=== PATIENT | male | born 1950 | race Caucasian/White ===

== ENCOUNTER 2021-01-22 22:14 | Inpatient (IN) ==
[2021-01-22] MEDS ORDERED: methylPREDNISolone 125 MG/2 ML VIAL ONE (22:29)
[2021-01-22] MEDS ORDERED: ACETAMINOPHEN 1000 MG/100 ML IV IV ONE (22:29)
[2021-01-22] MEDS ORDERED: ONDANSETRON INJ 2 MG/ML 2 ML VIAL ONE (22:29)
[2021-01-22] MEDS ORDERED: CEFEPIME 2,000 MG/20 ML VIAL IV STA (22:34)
[2021-01-22] MEDS ORDERED: ACETAMINOPHEN 1,000 MG/100 ML VIAL IV STA (22:34)
[2021-01-22] MEDS ORDERED: ALBUT/IPRATROP 3MG/0.5MG NEB 3 ML VIAL NEB STA (22:34)
[2021-01-22] MEDS ORDERED: methylPREDNISolone 125 MG/2 ML VIAL IV STA (22:37)
[2021-01-22 23:25] LABS: Hematocrit (blood only) 44.1 % (42-52); Hemoglobin 14.9 g/dL (14.0-18.0); Mean Corpuscular Hemoglobin 31.8 pg (25-34); Mean Corpuscular Hgb Conc 33.8 g/dL (32-36); Mean Corpuscular Volume 94.2 fL (80-100); Mean Platelet Volume 10.6 fL (7.4-10.4); Platelet Count 203 K/uL (130-400); RDW Coefficient of Variation 14.5 % (11.5-14.5); RDW Standard Deviation 49.7 fL (36.4-46.3); Red Blood Count 4.68 M/uL (4.7-6.1); White Blood Count 6.37 K/uL (4.8-10.8)
--- NOTE | 2021-01-22 23:30 | Emergency Department Note ---
History of Present Illness General Chief Complaint: Shortness of Breath/Dyspnea Time Seen by Provider: 01/22/21 22:30 Source: patient Mode of arrival: ambulatory Limitations: no limitations History of Present Illness Provider Complaint: shortness of breath and cough Onset (ago): week(s) (1.5) Severity: mild (Patient states that his symptoms are mild though the patient is on 15 L and hypoxic) Consistency/Duration: + constant and + progressively worsening Maximum Pain Intensity: 0 Relieved By: + nothing Exacerbated By: + nothing Context: + recent illness Associated symptoms: no sputum production, no lower extremity pain, no polyuria, no palpitations, no diaphoresis or no abdominal pain Treatment prior to arrival: oxygen Home Medications Medication Instructions Recorded Confirmed Type allopurinol 100 mg tablet 100 mg PO BID 12/20/18 01/23/21 History amlodipine 10 mg tablet 10 mg PO DAILY 12/20/18 01/23/21 History cyanocobalamin (vitamin B-12) 2,000 mcg PO DAILY 12/20/18 01/23/21 History 2,000 mcg tablet furosemide 20 mg tablet 20 mg PO DAILY 12/20/18 01/23/21 History hydralazine 25 mg tablet 25 mg PO BID 12/20/18 01/23/21 History lisinopril 40 mg tablet 40 mg PO DAILY 12/20/18 01/23/21 History metformin 1,000 mg tablet 1,000 mg PO BID 12/20/18 01/23/21 History metoprolol succinate 200 mg 200 mg PO DAILY 12/20/18 01/23/21 History tablet,extended release 24 hr ondansetron HCl 4 mg tablet 4 mg PO TID PRN 01/23/21 01/23/21 History Allergies Allergy/AdvReac Type Severity Reaction Status Date / Time No Known Allergies Allergy Unverified 01/23/21 00:29 Past Med/Surg History Medical History Chest pain Chest pain Diabetes Hypertension Renal colic Right flank pain Tick bite Surgical History No pertinent past surgical history Family History Other Coronary heart disease Social History Smoking Status: Never smoker Feels Safe at Home: Yes Review of Systems See HPI for pertinent positives & negatives. and A total of 10 systems reviewed and were otherwise negative Physical Exam Vital Signs: Vital Signs - 24 hr 01/22/21 22:28 01/22/21 22:30 01/22/21 22:37 Temperature 37.6 C H Temperature Source Oral Pulse Rate 110 H 113 H Pulse Rate [Apical ] Respiratory Rate 32 H 38 H Respiratory Effort / Characteristics Spontaneous Short of Breath Non-Labored Respiratory Depth Normal Normal Respiratory Patter n Regular Regular Blood Pressure 144/87 H Blood Pressure [Ri ght Arm] Blood Pressure Daysi n 106 Blood Pressure Daysi n [Right Arm] Blood Pressure Pos ition Sitting Pulse Oximetry 85 L 93 85 L Oxygen Delivery Me thod Non-rebreather Non-rebreather Oxygen Flow Rate 15 15 Fraction of Inspir ed Oxygen 70 Sepsis Recent Feve r Within 48 Hours No Sepsis New/Unexpla ined Change in Men georges Status N/A Sepsis Action Take n by Nursing Physician Notified 01/22/21 22:48 01/22/21 23:08 01/22/21 23:55 Temperature Temperature Source Pulse Rate 113 H Pulse Rate [Apical ] 110 H 105 H Respiratory Rate 35 H 34 H Respiratory Effort / Characteristics Spontaneous Short of Breath Non-Labored Sponta neous Respiratory Depth Normal Respiratory Patter n Blood Pressure Blood Pressure [Ri ght Arm] 118/65 Blood Pressure Daysi n Blood Pressure Daysi n [Right Arm] 82 Blood Pressure Pos ition Pulse Oximetry 92 91 92 Oxygen Delivery Me thod BiPAP BiPAP Oxygen Flow Rate 15 Fraction of Inspir ed Oxygen 70 80 Sepsis Recent Feve r Within 48 Hours Sepsis New/Unexpla ined Change in Men georges Status Sepsis Action Take n by Nursing 01/23/21 00:22 Temperature 36.4 C L Temperature Source Oral Pulse Rate Pulse Rate [Apical ] 86 Respiratory Rate 26 H Respiratory Effort / Characteristics Non-Labored Respiratory Depth Normal Respiratory Patter n Blood Pressure Blood Pressure [Ri ght Arm] 118/65 Blood Pressure Daysi n Blood Pressure Daysi n [Right Arm] 82 Blood Pressure Pos ition Pulse Oximetry 92 Oxygen Delivery Me thod BiPAP Oxygen Flow Rate Fraction of Inspir ed Oxygen Sepsis Recent Feve r Within 48 Hours Sepsis New/Unexpla ined Change in Men georges Status Sepsis Action Take n by Nursing Physical Exam: GENERAL: Moderate distress, tachypnea noted, nonrebreather in place. EYE EXAM: Normal conjunctiva. PERRL, no anisocoria and EOM's grossly intact w/o pain. NECK: Supple, no nuchal rigidity, no adenopathy, non-tender. No signs of meningismus. LUNGS: Slight decreased breath sounds throughout with shallow breaths noted, tachypnea noted. HEART: NSR, no MRG. ABDOMEN: Abdomen soft, non-tender, normo-active bowel sounds, no masses, no rebound or guarding. BACK: No CVA TTP. SKIN: No rashes and no bruising. UPPER EXTREMITIES: Upper extremities are grossly normal. LOWER EXTREMITIES: Grossly normal, no edema. No pain to palpation. NEURO EXAM: A&O x3, cranial nerves II-XII grossly intact, normal speech, moves all 4 extremities on command w/o issue. Course Course Cardiac monitoring: An order was placed for continuous cardiac monitoring. The monitor shows a rate of 86 with sinus rhythm. Administered Medications Discontinued Medications Acetaminophen (Acetaminophen 1000 Mg/100 Ml Iv) Confirm Administered Dose 1,000 mg IV .STK-MED ONE Stop: 01/22/21 22:30 Last Admin: 01/22/21 22:43 Dose: Not Given Documented by: [id number] Albuterol (Albut/Ipratrop 3mg/0.5mg Neb 3 Ml Vial) 6 ml NEB NOW STA Stop: 01/22/21 22:35 Last Admin: 01/22/21 22:45 Dose: 6 ml Documented by: [id number] Cefepime HCl (Maxipime) 2,000 mg in 20 mls @ 5 mls/min IV NOW STA; Protocol Stop: 01/22/21 22:37 Last Admin: 01/23/21 00:14 Dose: 5 mls/min Documented by: [id number] Acetaminophen (Ofirmev) 1,000 mg in 100 mls @ 400 mls/hr IV NOW STA Stop: 01/22/21 22:48 Last Infusion: 01/23/21 00:22 Dose: 0 mls/hr Documented by: [id number] Admin: 01/22/21 22:43 Dose: 400 mls/hr Documented by: [id number] Methylprednisolone (Methylprednisolone 125 Mg/2 Ml Vial) Confirm Administered Dose 125 mg .ROUTE .STK-MED ONE Stop: 01/22/21 22:30 Last Admin: 01/22/21 22:43 Dose: Not Given Documented by: [id number] Methylprednisolone (Methylprednisolone 125 Mg/2 Ml Vial) 60 mg IV NOW STA Stop: 01/22/21 22:38 Last Admin: 01/22/21 22:43 Dose: 60 mg Documented by: [id number] Ondansetron HCl (Ondansetron Inj 2 Mg/Ml 2 Ml Vial) Confirm Administered Dose 4 mg .ROUTE .STK-MED ONE Stop: 01/22/21 22:30 Last Admin: 01/22/21 22:43 Dose: 4 mg Documented by: [id number] Medical Decision Making Differential Diagnosis Reactive airway disease, pneumonia, pneumothorax, COPD, CHF, infections, cardiac ischemia, pulmonary embolism, musculoskeletal, gastrointestinal, as well as other pathologies. Medical Records Attestation: I reviewed the patient's medical records. Home Medications Current Medication List: was personally reviewed by me Laboratory Data Attestation: I reviewed the patient's lab results. Result diagrams: 01/22/21 22:29 01/22/21 22:29 Lab Results 01/22/21 01/22/21 01/22/21 Range/Units 22:29 22:29 22:29 WBC 6.37 (4.8-10.8) K/uL RBC 4.68 L (4.7-6.1) M/uL Hgb 14.9 (14.0-18.0) g/dL Hct 44.1 (42-52) % MCV 94.2 (80-100) fL MCH 31.8 (25-34) pg MCHC 33.8 (32-36) g/dL RDW Std Deviation 49.7 H (36.4-46.3) fL RDW Coeff of Trell 14.5 (11.5-14.5) % Plt Count 203 (130-400) K/uL MPV 10.6 H (7.4-10.4) fL Immature Gran % (Auto) 0.5 % Neut % (Auto) 79.9 % Lymph % (Auto) 13.0 % [place] % (Auto) 6.1 % Eos % (Auto) 0.0 % Baso % (Auto) 0.5 % Neut # (Auto) 5.09 (1.4-6.5) K/uL Lymph # (Auto) 0.83 L (1.2-3.4) K/uL [place] # (Auto) 0.39 (0.11-0.59) K/uL Eos # (Auto) 0.00 (0-0.5) K/uL Baso # (Auto) 0.03 (0-0.2) K/uL Immature Gran # (Auto) 0.03 H (0.00-0.02) K/uL PT 10.8 (9.0-12.0) Seconds INR 1.1 (0.9-1.1) APTT 28.4 (21.0-31.0) Seconds PTT Ratio 1.1 VBG pH (7.36-7.41) VBG pCO2 (38-50) mmHg VBG pO2 mmHg VBG HCO3 mmol/L VBG O2 Saturation % VBG Base Excess mEq/L Barometric Pressure mm/Hg Sodium 139 (136-145) mmol/L Potassium 4.2 (3.5-5.1) mmol/L Chloride 106 (98-107) mmol/L Carbon Dioxide 24 (21-32) mmol/L Anion Gap 9.0 (3-11) BUN 34 H (7-18) mg/dl Creatinine 1.68 H (0.6-1.4) mg/dl Est Cr Clr Drug Dosing 53.5 ml/min Est GFR ( Amer) 47.0 ml/min Est GFR (Non-Af Amer) 40.5 ml/min BUN/Creatinine Ratio 20.2 H (10-20) Glucose 129 H (70-99) mg/dl Lactate (0.4-2.0) mmol/L Calcium 8.7 (8.5-10.1) mg/dl Magnesium 1.7 L (1.8-2.4) mg/dl Total Bilirubin 0.5 (0.2-1) mg/dl AST 43 H (15-37) U/L ALT 30 (12-78) U/L Alkaline Phosphatase 46 (45-117) U/L Troponin I < 0.015 (0-0.045) ng/ml Total Protein 7.3 (6.4-8.2) gm/dl Albumin 2.6 L (3.4-5.0) gm/dl Globulin 4.7 H (2.5-4.0) gm/dl Albumin/Globulin Ratio 0.6 L (0.9-2) Procalcitonin (0-0.5) ng/ml COVID-19 Eval Order SARS-CoV-2 (PCR) (Negative) 01/22/21 01/22/21 01/22/21 Range/Units 22:29 22:49 22:49 WBC (4.8-10.8) K/uL RBC (4.7-6.1) M/uL Hgb (14.0-18.0) g/dL Hct (42-52) % MCV (80-100) fL MCH (25-34) pg MCHC (32-36) g/dL RDW Std Deviation (36.4-46.3) fL RDW Coeff of Trell (11.5-14.5) % Plt Count (130-400) K/uL MPV (7.4-10.4) fL Immature Gran % (Auto) % Neut % (Auto) % Lymph % (Auto) % [place] % (Auto) % Eos % (Auto) % Baso % (Auto) % Neut # (Auto) (1.4-6.5) K/uL Lymph # (Auto) (1.2-3.4) K/uL [place] # (Auto) (0.11-0.59) K/uL Eos # (Auto) (0-0.5) K/uL Baso # (Auto) (0-0.2) K/uL Immature Gran # (Auto) (0.00-0.02) K/uL PT (9.0-12.0) Seconds INR (0.9-1.1) APTT (21.0-31.0) Seconds PTT Ratio VBG pH (7.36-7.41) VBG pCO2 (38-50) mmHg VBG pO2 mmHg VBG HCO3 mmol/L VBG O2 Saturation % VBG Base Excess mEq/L Barometric Pressure mm/Hg Sodium (136-145) mmol/L Potassium (3.5-5.1) mmol/L Chloride (98-107) mmol/L Carbon Dioxide (21-32) mmol/L Anion Gap (3-11) BUN (7-18) mg/dl Creatinine (0.6-1.4) mg/dl Est Cr Clr Drug Dosing ml/min Est GFR ( Amer) ml/min Est GFR (Non-Af Amer) ml/min BUN/Creatinine Ratio (10-20) Glucose (70-99) mg/dl Lactate (0.4-2.0) mmol/L Calcium (8.5-10.1) mg/dl Magnesium (1.8-2.4) mg/dl Total Bilirubin (0.2-1) mg/dl AST (15-37) U/L ALT (12-78) U/L Alkaline Phosphatase (45-117) U/L Troponin I (0-0.045) ng/ml Total Protein (6.4-8.2) gm/dl Albumin (3.4-5.0) gm/dl Globulin (2.5-4.0) gm/dl Albumin/Globulin Ratio (0.9-2) Procalcitonin 0.35 (0-0.5) ng/ml COVID-19 Eval Order Covid19 at [facility] SARS-CoV-2 (PCR) POSITIVE A* (Negative) 01/22/21 01/22/21 Range/Units 23:29 23:29 WBC (4.8-10.8) K/uL RBC (4.7-6.1) M/uL Hgb (14.0-18.0) g/dL Hct (42-52) % MCV (80-100) fL MCH (25-34) pg MCHC (32-36) g/dL RDW Std Deviation (36.4-46.3) fL RDW Coeff of Trell (11.5-14.5) % Plt Count (130-400) K/uL MPV (7.4-10.4) fL Immature Gran % (Auto) % Neut % (Auto) % Lymph % (Auto) % [place] % (Auto) % Eos % (Auto) % Baso % (Auto) % Neut # (Auto) (1.4-6.5) K/uL Lymph # (Auto) (1.2-3.4) K/uL [place] # (Auto) (0.11-0.59) K/uL Eos # (Auto) (0-0.5) K/uL Baso # (Auto) (0-0.2) K/uL Immature Gran # (Auto) (0.00-0.02) K/uL PT (9.0-12.0) Seconds INR (0.9-1.1) APTT (21.0-31.0) Seconds PTT Ratio VBG pH 7.37 (7.36-7.41) VBG pCO2 45 (38-50) mmHg VBG pO2 52 mmHg VBG HCO3 26 mmol/L VBG O2 Saturation 84.1 % VBG Base Excess -0.2 mEq/L Barometric Pressure 733.4 mm/Hg Sodium (136-145) mmol/L Potassium (3.5-5.1) mmol/L Chloride (98-107) mmol/L Carbon Dioxide (21-32) mmol/L Anion Gap (3-11) BUN (7-18) mg/dl Creatinine (0.6-1.4) mg/dl Est Cr Clr Drug Dosing ml/min Est GFR ( Amer) ml/min Est GFR (Non-Af Amer) ml/min BUN/Creatinine Ratio (10-20) Glucose (70-99) mg/dl Lactate 2.1 H* (0.4-2.0) mmol/L Calcium (8.5-10.1) mg/dl Magnesium (1.8-2.4) mg/dl Total Bilirubin (0.2-1) mg/dl AST (15-37) U/L ALT (12-78) U/L Alkaline Phosphatase (45-117) U/L Troponin I (0-0.045) ng/ml Total Protein (6.4-8.2) gm/dl Albumin (3.4-5.0) gm/dl Globulin (2.5-4.0) gm/dl Albumin/Globulin Ratio (0.9-2) Procalcitonin (0-0.5) ng/ml COVID-19 Eval Order SARS-CoV-2 (PCR) (Negative) Imaging Data Attestation: I personally reviewed and interpreted this imaging study as follows: My Impression: Chest x-ray Multifocal pneumonia. MDM Narrative Patient does present due to concern for shortness of breath. The patient had tested positive for Covid 1/2 weeks prior. EMS reported room air sat of 64% the patient was placed on nonrebreather at 15 L and the patient was satting in the mid 80s upon arrival. The patient was seen in [facility]. The patient did not complain of shortness of breath. Patient denies feeling feverish but the pa aleta did have a temperature. The patient denies any chest pains or shortness of breath. Patient did have some shallow breaths and patient was immediately placed on BiPAP. The patient was ordered medications to help with symptoms. Patient has normal white count H&H and platelet count. The patient's kidney function is unremarkable. VBG does not show any concern for retention. The patient did have some lower saturations even on the BiPAP and I did increase the patient's settings to 15/9 at 85% which the patient helped well in the low 90s. The patient's chest x-ray does show concern for multifocal pneumonia. The patient does have mild hypomagnesemia. Troponin not detectable. Patient has a normal white count and hemoglobin. Kidney function does show creatinine 1.6. Patient VBG does not show any acidemia or hypercarbia. Patient initial lactate was 2.1. I did speak with the on-call hospitalist Dr. Lynch and the patient was admitted to the medicine service. I also did briefly touch base with the intensive care unit Javier Reilly PA-C given the patient's high BiPAP settings. Did receive this reassessed the patient multiple times and the patient was comfortable on the BiPAP. Impression & Plan Acute hypoxemic respiratory failure due to COVID-19, COVID-19, Multifocal pneumonia Critical Care Time Critical Care Time: Yes Total Critical Care Time: 125 Critical Care: I have personally spent 125 minutes of critical care time in direct management of this patient. This includes bedside care, interpretation of diagnostic studies, and testing, discussion with consultants, patient, and family members, and other require inpatient management activities. This 125 minutes is in excess of all separately billable procedures. Discharge Plan Visit Data Chief Complaint: Shortness of Breath/Dyspnea ED Provider: Omkar Barba Discharge Problem: Acute hypoxemic respiratory failure due to COVID-19, COVID-19, Multifocal pneumonia Patient Disposition: Admitted As Inpatient Forms Stand Alone Forms: My [facility] Prescriptions Prescriptions: No Action allopurinol 100 mg Tablet 100 mg PO BID RF: 0 hydralazine 25 mg Tablet 25 mg PO BID RF: 0 metformin 1,000 mg Tablet 1,000 mg PO BID RF: 0 cyanocobalamin (vitamin B-12) 2,000 mcg Tablet 2,000 mcg PO DAILY RF: 0 metoprolol succinate 200 mg Tablet Extended Release 24 Hr 200 mg PO DAILY RF: 0 amlodipine 10 mg Tablet 10 mg PO DAILY RF: 0 lisinopril 40 mg Tablet 40 mg PO DAILY RF: 0 furosemide 20 mg Tablet 20 mg PO DAILY RF: 0 ondansetron HCl 4 mg tablet 4 mg PO TID PRN (Reason: Nausea And Vomiting) RF: 0 Referrals Referrals: PCP,NO [Primary Care Provider] -
[2021-01-22 23:32] LABS: Alanine Aminotransferase 30 U/L (12-78); Albumin Level 2.6 gm/dl (3.4-5.0); Aspartate Aminotransferase 43 U/L (15-37); BUN Creatinine Ratio 20.2 (10-20); Blood Urea Nitrogen 34 mg/dl (7-18); Calcium 8.7 mg/dl (8.5-10.1); Carbon Dioxide 24 mmol/L (21-32); Chloride 106 mmol/L (98-107); Creatinine Clr Calc Pharmacy 53.5 ml/min; Est GFR (Non-African American) 40.5 ml/min; Glucose 129 mg/dl (70-99); Magnesium 1.7 mg/dl (1.8-2.4); Potassium 4.2 mmol/L (3.5-5.1); Sodium 139 mmol/L (136-145)
[2021-01-22 23:34] LABS: INR 1.1 (0.9-1.1); Partial Thromboplastin Ratio 1.1; Partial Thromboplastin Time 28.4 Seconds (21.0-31.0); Prothrombin Time 10.8 Seconds (9.0-12.0)
[2021-01-22 23:37] LABS: Albumin Globulin Ratio 0.6 (0.9-2); Alkaline Phosphatase 46 U/L (45-117); Bilirubin,Total 0.5 mg/dl (0.2-1); Globulin 4.7 gm/dl (2.5-4.0); Total Protein 7.3 gm/dl (6.4-8.2); Troponin I < 0.015 ng/ml (0-0.045)
[2021-01-22 23:44] LABS: Base Excess VBG -0.2 mEq/L; Oxygen Saturation VBG 84.1 %; pH VBG 7.37 (7.36-7.41)
[2021-01-23 00:29] LABS: Basophils # (auto) 0.03 K/uL (0-0.2); Basophils % (auto) 0.5 %; Immature Granulocytes # (auto) 0.03 K/uL (0.00-0.02); Immature Granulocytes % (auto) 0.5 %; Lymphocytes # (auto) 0.83 K/uL (1.2-3.4); Monocytes # (auto) 0.39 K/uL (0.11-0.59); Monocytes % (auto) 6.1 %; Neutrophils # (auto) 5.09 K/uL (1.4-6.5); Neutrophils % (auto) 79.9 %
[2021-01-23] MEDS ORDERED: REMDESIVIR 200 MG in SODIUM CHLORIDE 0.9% 210 ML IV STA (03:45)
[2021-01-23] MEDS ORDERED: ONDANSETRON 4 MG OD TAB PO PRN (05:05)
[2021-01-23] MEDS ORDERED: ICU PROTOCOL FOR HYPERGLYCEMIA PRN (05:05)
--- NOTE | 2021-01-23 05:39 | History and Physical Report ---
DATE OF ADMISSION: 01/23/2021. CHIEF COMPLAINT: Shortness of breath. HISTORY OF PRESENT ILLNESS: This is a 70-year-old male with a past medical history significant for type 2 diabetes, diabetic polyneuropathy, sleep apnea, abdominal aortic ectasia, hypertension, morbid obesity, chronic kidney disease stage III, who presents with shortness of breath. The patient was diagnosed with COVID on 01/15/2021. The patient seems to be having symptoms from 01/11/2021, having shortness of breath. Initially he had fever, having some cough, poor appetite, does not smell good, does not taste good. Because of ongoing shortness of breath, EMS was called and for EMS he was saturating only 60% and he was placed on nonrebreather and brought in here. On rebreather, he was 80's%. He was placed on BiPAP. With BiPAP at high settings, he was saturating more than 90. Currently, resting comfortably, but after talking to him, his saturations dropped into 60s again and we had to bump his FiO2 into 100%. Denies any chest pain, denies any nausea, no abdominal pain, no headache, no neck pain, no blurred visions, no earache, no runny nose, no sore throat, no rash. Says he has normal bowel and bladder movements. ALLERGIES: No known drug allergies. PAST MEDICAL HISTORY: As mentioned above. PAST SURGICAL HISTORY: Carpal tunnel surgery, colonoscopy, repair of rectal injury. MEDICATIONS: The patient is on allopurinol 100 mg p.o. b.i.d., amlodipine 10 mg p.o. daily, vitamin B12 2000 mcg p.o. daily, furosemide 20 mg p.o. daily, hydralazine 25 mg p.o. b.i.d., lisinopril 40 mg p.o. daily, metformin 1000 mg p.o. b.i.d., metoprolol succinate 200 mg p.o. daily, Zofran 4 mg p.o. t.i.d. p.r.n. FAMILY HISTORY: Significant for father of [place] at the age of 49; mother has hypertension; son has gout; sister of complication of diabetes; son has hypertension. SOCIAL HISTORY: , former smoker, quit in 1967. Smoked for 4 years. Former user of smokeless tobacco, quit in 2017. Snuffs tobacco. Drinks 1 standard drink of alcohol per week. No drug use. REVIEW OF SYSTEMS: As per HPI. Rest of the review of systems negative. PHYSICAL EXAMINATION: GENERAL: The patient is obese, not in acute distress. VITAL SIGNS: Temperature 36.4, pulse 72, respiratory rate 24, blood pressure 118/65, oxygen 94% on BiPAP. HEENT: Pupils equal, round and reactive to light. NECK: No neck masses seen. CARDIOVASCULAR: S1 and S2 heard, regular rate and rhythm. No murmur, no gallop. RESPIRATORY SYSTEM: Normal AP diameter. No accessory muscle use. Mild bibasilar crackles. ABDOMEN: Soft, bowel sounds present, nontender, no distention. CENTRAL NERVOUS SYSTEM: Cranial nerves II-XII grossly intact, nonfocal. EXTREMITIES: No edema, no erythema. LABORATORY DATA: WBC 6.3, hemoglobin 14.9, hematocrit 44.1, platelets 203. PT 10.8, INR 1.1, APTT 28.4. Venous blood gas, pH of 7.37, pCO2 of 45, pO2 of 52, bicarbonate 26. Sodium 139, potassium 4.2, chloride 106, bicarbonate 24, BUN 34, creatinine 1.68, serum glucose 129. Lactate 2.3, calcium 8.7, magnesium 1.7, total bilirubin 0.5, AST 43, ALT 30, alkaline phosphatase 46. Troponin I less than 0.015. SARS-CoV-2 PCR positive. IMAGING DATA: Chest x-ray, multifocal pneumonia. EKG: Sinus tachycardia at a rate of 111. Nonspecific ST-T abnormalities seen. ASSESSMENT AND PLAN: This is a 70-year-old male, who presents with shortness of breath and has COVID pneumonia. 1. COVID pneumonia and hypoxia requiring BiPAP: The patient seems to be having symptoms from 01/11/2021. He was tested positive on 01/15/2021. Though he has more than 10 days of symptoms, we will place him on IV Decadron 6 mg and remdesivir and follow the labs. We will follow the inflammatory markers, CRP, D-dimer, ferritin levels, and because of high requirement of oxygenation and desaturating easily, closely monitor in the ICU. 2. History of diabetes: Hold his metformin. We will place him on insulin sliding scale. Follow the blood sugars while he is on Decadron. 3. Acute kidney injury on chronic kidney disease stage III: Baseline creatinine 1.2, presently with creatinine of 1.68. Holding his Lasix and lisinopril and metformin. Will follow the labs. 4. Hypertension: Continue his amlodipine, hydralazine, metoprolol succinate. Holding his lisinopril and Lasix. We will monitor his blood pressure. If needed, we will place him on IV hydralazine p.r.n. 5. Gout: On allopurinol. 6. Obstructive sleep apnea: Uses BiPAP at bedtime. The patient is on 4 L with BiPAP during night time. 7. Morbid obesity: Needs counseling. 8. Deep venous thrombosis prophylaxis: We will place on heparin subcutaneous. DISPOSITION: Closely monitor in the ICU. Level 1 full code. Discharge to be determined. Job ID: [id number]
[2021-01-23] MEDS ORDERED: GLUCAGON FOR INJ 1 MG VIAL IM PRN (05:45)
[2021-01-23] MEDS ORDERED: DEXTROSE 50% 50 ML SYRINGE IV PRN (05:45)
[2021-01-23] MEDS ORDERED: GLUCOSE 10 TABS/TUBE PO PRN (05:45)
[2021-01-23] MEDS ORDERED: GLUCOSE 40% GEL 15 GM TUBE PO PRN (05:45)
[2021-01-23] MEDS ORDERED: CARBOHYDRATES FOR HYPOGLYCEMIA PO PRN (05:45)
--- NOTE | 2021-01-23 05:57 | Critical Care Consultation ---
Date of Consultation January 23, 2021 Assessment & Plan (1) Admitted to intensive care unit: Reason Critically Ill: 70-year-old male with acute hypoxic respiratory failure in the setting of multifocal pneumonia consistent with COVID-19 pneumonia requiring ongoing evaluation and possible need for intervention for emergent airway secondary to increasing oxygen requirement. NEURO - * CAM ICU: NEGATIVE CARDIAC/VASCULAR - * History of hypertension: * Continue home medications as tolerated. * EKG: Sinus tachycardia @ [address] depressions noted laterally. QTc 416 ms. * Monitor on telemetry. RESPIRATORY - * Acute hypoxic respiratory failure: * Secondary to multifocal pneumonia the setting of COVID-19 pneumonia. * Currently requiring noninvasive positive pressure ventilatory techniques. * Will titrate down BiPAP settings as tolerated. * High flow nasal cannula intermittently as tolerated. * Encourage incentive spirometry and flutter valve. * Remdesivir ordered. * Continue with Decadron. * Patient may benefit from Tocilizumab. * Will check BNP. There appears to be a degree of pulmonary edema on chest x-ray. Consider addition of Lasix dosing of such. GI/NUTRITION - * Heart healthy diet * Prophylaxis: Famotidine RENAL/LYTES - * JASEN on CKD 3: * Received IV fluid resuscitation in the emergency department. * Continue to trend. * Would be cautious with use of IV fluids in the COVID-19 patient with multifocal infiltrative changes. - * No concerns at this time. ENDO - * DMII * BSGs per unit protocol. ISS --> gtt per unit policy. HEME - * Stable H&H ID - * Covid 19 infection: * Started on remdisivir. * Continue w/ Decadron. * Check CRP, LFTs, etc in evaluation for Tocilizumab. LINES/IV ACCESS - * PIVs x1 DVT PROPHYLAXIS - * Heparin sq * SCDs I have personally spent 35 minutes of critical care time in the direct management of this patient. This is a life/limb threatening event. This includes time spent evaluating patient, direct bedside care, chart review, placing orders, interpretation of diagnostic studies, discussion with consultants, patient, and family members, as well as other required patient management activities. This time is exclusive of all separately billable procedures, and teaching time and separate from and in addition to any other critical care service time. Thank you for allowing us to participate in the care of this patient. Please refer to my attending physician's documentation for any further recommendations. (2) Acute hypoxemic respiratory failure due to COVID-19: (3) COVID-19: (4) Multifocal pneumonia: (5) Diabetes: (6) Hypertension: History of Present Illness Attending Physician: Liban Marshall MD History of Present Illness Patient is a 70-year-old male with a significant past medical history for h ypertension, diabetes, and obesity who presented to the emergency department today via EMS with shortness of breath and hypoxia. The patient reportedly has had symptoms of fever, cough, generalized malaise, and loss of sense of smell and taste for the past week or 2. He was tested on 01/15 for COVID-19 and found to be positive. The patient is not vaccinated. His is positive for COVID- 19 as well. This evening, the patient had increasing shortness of breath which prompted his to contact EMS. In route, the patient was on a 15 L nonrebreather as he was initially found with saturations in the 60s. His saturations improved to the 80s. He was placed on BiPAP in the emergency department with moderate improvement. Chest x-ray concerning for bilateral infiltrative changes. He received IV steroids and albuterol nebs. Upon evaluation in the ICU, the patient is awake, alert, and oriented. He reports that his shortness of breath has improved with the BiPAP in place. He denies any complaints of headaches, dizziness, lightheadedness, chest pain, palpitations, pleuritic pain, nausea, vomiting, or abdominal discomfort. Allergies Allergy/AdvReac Type Severity Reaction Status Date / Time No Known Allergies Allergy Unverified 01/23/21 00:29 Home Medications Medication Instructions Recorded Confirmed Type allopurinol 100 mg tablet 100 mg PO BID 12/20/18 01/23/21 History amlodipine 10 mg tablet 10 mg PO DAILY 12/20/18 01/23/21 History cyanocobalamin (vitamin B-12) 2,000 mcg PO DAILY 12/20/18 01/23/21 History 2,000 mcg tablet furosemide 20 mg tablet 20 mg PO DAILY 12/20/18 01/23/21 History hydralazine 25 mg tablet 25 mg PO BID 12/20/18 01/23/21 History lisinopril 40 mg tablet 40 mg PO DAILY 12/20/18 01/23/21 History metformin 1,000 mg tablet 1,000 mg PO BID 12/20/18 01/23/21 History metoprolol succinate 200 mg 200 mg PO DAILY 12/20/18 01/23/21 History tablet,extended release 24 hr ondansetron HCl 4 mg tablet 4 mg PO TID PRN 01/23/21 01/23/21 History Patient History Medical History Chest pain Chest pain Diabetes Hypertension Renal colic Right flank pain Tick bite Surgical History No pertinent past surgical history Family History Other Coronary heart disease Social History Smoking Status: Never smoker Preferred Language: Polish Beliefs That Will Affect Care: None Current Living Situation: Spouse Other Information That Helps Us Care for You: No Feels Safe at Home: Yes Safety Concerns: Feels Safe At This Time Assistive Devices: Denture - Upper and Hearing Aid - Bilateral Review of Systems Review of Systems: A complete 10 point review of systems was reviewed with the patient with pertinent positives and negatives as per history of present illness. All else were negative. Physical Exam Physical Exam: VITAL SIGNS - Vital signs and nursing notes were reviewed. GENERAL - 70-year-old male appearing his stated age who is in no acute distress. Communicates well with provider and answers questions appropriately. SKIN - Without rashes. HEAD - NC/AT. EYES - PERRL with EOMI bilaterally. Sclera anicteric. EARS - No deformities of external structures noted on gross examination bilaterally. NOSE - Midline and without cyanosis. No epistaxis or purulent drainage noted. MOUTH/OROPHARYNX - BiPAP mask in place. Without perioral cyanosis. Buccal mucosa pink and moist and without leukoplakia. NECK - Neck with FROM. Supple to palpation. No nuchal rigidity. LUNGS - Chest wall symmetric without accessory muscle use, intercostals retractions, or central cyanosis. Coarse breath sounds appreciated throughout. CARDIAC - RRR with S1/S2. No murmur, rubs, or gallops appreciated. ABDOMEN - Abdominal contour obese without pulsations or visible masses. BS normoactive all four quadrants. No tenderness, palpable masses, hepatosplenomega ly, or ascites noted. EXTREMITIES - No clubbing or peripheral cyanosis. No pretibial edema present. +3/5 radial and dorsalis pedis pulses palpated throughout. +5/5 strength noted in UE/LE bilaterally. NEUROLOGIC - Cranial nerves II through XII grossly intact. PSYCH - A&Ox3 and cooperates fully with examiner. Pt is very pleasant and interacts well with examiner. Results & Data Results & Data ([facility]) Vital Signs (Past 12 Hours) Vital Signs Temp Pulse Pulse Resp BP BP BP 01/23/21 05:05 119/64 01/23/21 05:00 36.1 C L 70 22 109/59 L 01/23/21 04:45 36.1 C L 74 108/59 L 01/23/21 04:35 70 27 H 01/23/21 04:22 71 18 89/52 L 01/23/21 04:11 70 23 79/55 L 01/23/21 03:30 01/23/21 02:38 72 24 118/65 01/23/21 02:16 79 27 H 01/23/21 00:22 36.4 C L 86 26 H 118/65 01/22/21 23:55 01/22/21 23:08 113 H 105 H 34 H 118/65 01/22/21 22:48 110 H 35 H 01/22/21 22:37 37.6 C H 113 H 38 H 144/87 H 01/22/21 22:30 110 H 32 H 01/22/21 22:28 01/22/21 22:19 107 H 51 H 118/65 Pulse Ox 01/23/21 05:05 01/23/21 05:00 96 01/23/21 04:45 94 01/23/21 04:35 92 01/23/21 04:22 95 01/23/21 04:11 95 01/23/21 03:30 94 01/23/21 02:38 91 01/23/21 02:16 95 01/23/21 00:22 92 01/22/21 23:55 92 01/22/21 23:08 91 01/22/21 22:48 92 01/22/21 22:37 85 L 01/22/21 22:30 93 01/22/21 22:28 85 L 01/22/21 22:19 87 L Coding Level of Care Code Critical Care 1st 30-74 mins Diagnoses Admitted to intensive care unit Z78.9 Acute hypoxemic respiratory failure due to COVID-19 U07.1; J96.01 COVID-19 U07.1 Multifocal pneumonia J18.9 Diabetes E11.9 Hypertension I10 Time Spent (min) 35
[2021-01-23] MEDS ORDERED: HEPARIN SOD 5,000 UNIT/0.5 ML VIAL SQ SCH (06:00)
[2021-01-23] MEDS ORDERED: INSULIN ASPART 100 UNITS/ML 3 ML PEN SC SCH (06:00)
[2021-01-23 06:53] LABS: C Reactive Protein 13.2 mg/dl (0-0.29); Ferritin 768.3 ng/ml (8-388)
[2021-01-23 07:17] LABS: D Dimer 3910 ug/L FEU (0-500)
--- NOTE | 2021-01-23 07:53 | XRay Report ---
XR chest 1V portable HISTORY: SEPSIS COMPARISON: Chest 12/20/2018. FINDINGS: No pneumothorax. There are trace bilateral pleural effusions. The heart is mildly enlarged. There are low lung volumes. There are scattered patchy airspace opacities most pronounced within the periphery of the left lung. This likely represents a viral pneumonia. IMPRESSION: Scattered patchy airspace opacities likely representing a viral pneumonia. There are trace bilateral pleural effusions. ACT 112: Negative or not required by law. Electronically signed by: Cleveland Bailon M.D. 01/23/2021 7:52 AM
[2021-01-23] MEDS: hydrALAZINE HCL 25 MG TAB PO SCH ×2 (08:08→21:29)
[2021-01-23] MEDS: allopurinoL 100 MG TAB PO SCH ×2 (08:08→21:29)
[2021-01-23] MEDS: CYANOCOBALAMIN 500 MCG TABLET (VITAMIN B-12) PO SCH (08:08)
[2021-01-23] MEDS: dexAMETHasone 6 MG in SYRINGE 0 ML IV SCH (08:10)
[2021-01-23] MEDS ORDERED: METOPROLOL SUCC 50MG EXT REL TAB PO SCH (09:00)
[2021-01-23] MEDS ORDERED: SODIUM CHLORIDE 0.9% 10ML FLUSH IV SCH (09:00)
[2021-01-23] MEDS ORDERED: amLODIPine BESYLATE 5 MG TAB PO SCH (09:00)
[2021-01-23] MEDS ORDERED: PHARMACY GLYCEMIC MGMT CONSULT PRN (09:45)
[2021-01-23] MEDS ORDERED: INSULIN HUMAN NPH SC STA ×2 (09:49→11:14)
[2021-01-23] MEDS ORDERED: TOCILIZUMAB 800 MG in 0.9 % SODIUM CHLORIDE 60 ML IV ONE (10:00)
[2021-01-23 11:11] LABS: Estimated Average Glucose 137 mg/dl; Hemoglobin A1C 6.4 % (4.5-5.6)
[2021-01-23] MEDS: INSULIN ASPART 100 UNITS/ML 3 ML PEN SC SCH ×3 (11:31→21:11)
--- NOTE | 2021-01-23 11:39 | Pharmacy Report ---
Pharmacy Glycemic Short Note 2 - Date of Service January 23, 2021 - Glycemic Short BSG Results (Last 24 hours): 01/22/21 01/23/21 01/23/21 22:29 06:12 11:11 Glucose 129 H POC Glucose 162 H 165 H OUTPATIENT ANTIDIABETIC REGIMEN: * metformin 1gm PO BID * A1c = 6.4% 01/23/21 ASSESSMENT: * Type 2 diabetic, well controlled w/ metformin monotherapy, admitted 01/23 for COVID pneumonia * BSGs thus far acceptable, 160s range * IV dexamethasone 6 mg daily ordered * Not currently intubated, not requiring pressors * Remains NPO due to oxygen delivery needs * Will admin NPH ~0.2 units/kg adj BW x 1 with AM dexamethasone for basal needs. * Will utilize "severe" stress Novolog correction / carb coverage PLAN FOR INPATIENT GLYCEMIC CONTROL: * Hold outpatient oral diabetes medications (metformin) * Basal insulin * NPH 20 units SQ x 1, reassess needs tomorrow AM given ongoing NPO status * Bolus insulin * NovoLog per scale Q4hrs while NPO * Goal Range: Low 110 mg/dL - High 140 mg/dL * Correction Factor: 18 mg/dL/unit * Nutritional / Prandial insulin per carb ratio of 1 unit per 6 grams CHO consumed PLAN FOR DISCHARGE: * may resume metformin on discharge given A1c at goal (< 6.5%) if no contraindications present
--- NOTE | 2021-01-23 12:01 | Communication Note ---
Date of Service: January 23, 2021 Patient seen and examined. Discussed with critical care NELLIE as well as with bedside critical care nurse. Discussed on multidisciplinary rounds. Patient is when weaned to high flow oxygen. Were working on identifying his BiPAP settings at home and will continue BiPAP when sleeping. He was reviewed and found to be a candidate for Tocilizumab which is being administered now after consultation with pharmacy. No indication for remdesivir as he is too far out of the window to justify viral replication as an ongoing issue. Continue dexamethasone 6 mg daily for 10 days. We will try and prone or place the patient in the decubitus position to see if this improves his shunt fraction. Trial of gentle diuresis may be warranted. We will need to follow his renal function and trend his lactate although I suspect it is related to hypoxemia. Procalcitonin negative so antibiotics will be withheld currently and will follow for secondary infection. Can advance diet to liquids. If the patient does well on high flow oxygen, he can likely leave the ICU although he has a high possibility of clinical decline. He would want intubation mechanical ventilation and tracheostomy if needed. Additional critical care time 55 minutes. Coding Level of Care Code Critical Care ea addt'l 30 min Time Spent (min) 55
[2021-01-23] MEDS ORDERED: FUROSEMIDE 20 MG in SYRINGE 0 ML IV ONE (12:15)
[2021-01-23 12:34] LABS: Appearance Urine Slightly Cloudy (Clear); Bilirubin Urine Negative (Negative); Blood Urine Negative (Negative); Color Urine Yellow; Glucose Urine UA Negative (Negative); Ketones Urine Trace (Negative); Leukocyte Esterase Urine Negative (Negative); Nitrite Urine Negative (Negative); Protein Urine 2+ (Negative); Specific Gravity Urine 1.025 (1.000-1.030); Urobilinogen Urine Negative (Negative)
[2021-01-23 12:58] LABS: Bacteria Urine 1+ (Negative); RBC Urine 0-4 /hpf (0-4)
--- NOTE | 2021-01-23 13:56 | Electrocardiogram Report ---
Test Reason : Blood Pressure : / mmHG Vent. Rate : 111 BPM Atrial Rate : 111 BPM P-R Int : 140 ms QRS Dur : 082 ms QT Int : 306 ms P-R-T Axes : 037 050 095 degrees QTc Int : 416 ms Poor data quality, interpretation may be adversely affected Sinus tachycardia Nonspecific ST and T wave abnormality Abnormal ECG When compared with ECG of 20-DEC-2018 23:10, Vent. rate has increased BY [address] now depressed in Lateral leads Nonspecific T wave abnormality now evident in Inferior leads Nonspecific T wave abnormality now evident in Lateral leads Confirmed by Ruddy Francis ([id number]) on 01/23/2021 1:55:58 PM Referred By: REFERRED SELF Confirmed By:Erik Francis
[2021-01-23] MEDS: HEPARIN SOD 5,000 UNIT/0.5 ML VIAL SQ SCH ×2 (14:57→21:29)
--- NOTE | 2021-01-23 16:30 | Hospitalist Progress Note ---
Date of Service January 23, 2021 Assessment & Plan (1) Acute hypoxemic respiratory failure due to COVID-19: Plan: Patient is a 70 yr male, who presents with shortness of breath and has COVID pneumonia. Acute on chronic respiratory failure with hypoxia COVID pneumonia COVID Screen:Positive on 01/15/21 CXR:Scattered patchy airspace opacities likely representing a viral pneumonia. There are trace bilateral pleural effusions. Procalcitonin: 0.35 CRP:13.2 Ferritin:768 D-Dimer:3910 Blood/Urine Cultures Pending Received Tocilizumab Continue Dexamethasone Remdesivir discontinued Isolation precautions--Airborne/Contact Appreciate Critical Care Input Encourage frequent Proning Lasix as needed Albuterol PRN Continue Supplemental Oxygen as needed DVT prophylaxis on Heparin SQ DM II HbA1C: 6.4 Hold Metformin Continue Insulin therapy Monitor BGs Acute kidney injury on CKD III Baseline cr 1.2 Cr:1.68 Monitor renal function lisinopril and metformin held Monitor renal function Hypertension: Was on amlodipine, hydralazine, metoprolol succinate, lisinopril Resume home meds as able Gout: On allopurinol. Obstructive sleep apnea: Uses BiPAP at bedtime. Uses Oxygen 4 L with BiPAP during night time. Morbid obesity: Needs counseling DVT Px: Heparin SQ Code Status Full Code Admission and Anticipated Discharge Date Admission Date: January 23, 2021 Subjective Patient is seen and examined at bedside States his dyspnea is better Minimal cough No diarrhea, nausea, vomiting, abd pain Denies chest pain, dizziness Offers no other complaints Currently on High Flow Oxygen Review of Systems Review of Systems: All systems reviewed & are unremarkable except as noted in Subjective Physical Exam Physical Exam: Physical Exam: Vitals signs as noted above General Appearance:Obese, no apparent distress Head: normocephalic, Atraumatic Eyes: normal inspection, EOMI Neck: supple, Trachea midline Respiratory/Chest: Decreased breath sounds, CTA Cardiovascular: S1, S2, No murmur Abdomen/GI:Soft, Non tender, Bowel sounds present Extremities/Musculoskeletal:normal inspection, no edema Neurologic/Psych:AAOX3, grossly no focal neurological deficits Skin: normal color, warm Results & Data Results & Data ([facility]) Vital Signs (Past 12 Hours) Vital Signs Temp Pulse Pulse Resp BP BP BP 01/23/21 15:47 81 01/23/21 15:32 36.7 C 89 21 119/66 01/23/21 15:07 84 20 01/23/21 15:02 88 25 H 139/78 01/23/21 14:32 82 19 111/67 01/23/21 14:01 84 25 H 131/69 01/23/21 13:31 86 23 126/67 01/23/21 13:02 85 17 122/60 01/23/21 12:32 77 15 100/74 01/23/21 12:01 36.5 C 88 20 135/82 01/23/21 11:59 89 20 01/23/21 11:32 81 21 126/60 01/23/21 11:02 71 19 116/54 L 01/23/21 10:32 72 22 94/54 L 01/23/21 10:02 67 24 98/54 L 01/23/21 09:32 73 25 H 96/63 L 01/23/21 09:01 76 25 H 101/53 L 01/23/21 08:32 74 23 107/55 L 01/23/21 08:02 36.6 C 75 23 110/67 01/23/21 08:00 67 01/23/21 07:32 68 23 90/61 L 01/23/21 07:01 73 22 103/58 L 01/23/21 06:00 68 22 114/62 01/23/21 05:05 119/64 01/23/21 05:00 36.1 C L 70 22 109/59 L 01/23/21 04:45 36.1 C L 74 108/59 L 01/23/21 04:35 70 27 H 01/23/21 04:22 71 18 89/52 L Pulse Ox 01/23/21 15:47 01/23/21 15:32 90 01/23/21 15:07 89 L 01/23/21 15:02 88 L 01/23/21 14:32 89 L 01/23/21 14:01 89 L 01/23/21 13:31 88 L 01/23/21 13:02 88 L 01/23/21 12:32 92 01/23/21 12:01 92 01/23/21 11:59 90 01/23/21 11:32 94 01/23/21 11:02 93 01/23/21 10:32 97 01/23/21 10:02 100 01/23/21 09:32 88 L 01/23/21 09:01 89 L 01/23/21 08:32 90 01/23/21 08:02 89 L 01/23/21 08:00 01/23/21 07:32 91 01/23/21 07:01 95 01/23/21 06:00 98 01/23/21 05:05 01/23/21 05:00 96 01/23/21 04:45 94 01/23/21 04:35 92 01/23/21 04:22 95 Laboratory Results Short CBC 01/22/21 Range/Units 22:29 WBC 6.37 (4.8-10.8) K/uL Hgb 14.9 (14.0-18.0) g/dL Hct 44.1 (42-52) % Plt Count 203 (130-400) K/uL BMP 01/22/21 22:29 Sodium 139 Potassium 4.2 Chloride 106 Carbon Dioxide 24 BUN 34 H Creatinine 1.68 H Glucose 129 H Calcium 8.7 Cardiac Enzymes 01/22/21 Range/Units 22:29 Troponin I < 0.015 (0-0.045) ng/ml Liver Function 01/22/21 Range/Units 22:29 Total Bilirubin 0.5 (0.2-1) mg/dl AST 43 H (15-37) U/L ALT 30 (12-78) U/L Alkaline Phosphatase 46 (45-117) U/L Albumin 2.6 L (3.4-5.0) gm/dl Urine 01/23/21 Range/Units 12:22 Urine Color Yellow Urine Appearance Slightly Cloudy (Clear) Urine pH 5.0 (4.5-7.5) Ur Specific [place] 1.025 (1.000-1.030) Urine Protein 2+ H (Negative) Urine Glucose (UA) Negative (Negative)
[2021-01-24] MEDS: INSULIN ASPART 100 UNITS/ML 3 ML PEN SC SCH ×7 (00:36→23:50)
[2021-01-24 05:21] LABS: Hematocrit (blood only) 45.3 % (42-52); Mean Corpuscular Hemoglobin 31.3 pg (25-34); Mean Corpuscular Hgb Conc 33.1 g/dL (32-36); Mean Corpuscular Volume 94.6 fL (80-100); Mean Platelet Volume 10.8 fL (7.4-10.4); Platelet Count 242 K/uL (130-400); RDW Coefficient of Variation 14.6 % (11.5-14.5); Red Blood Count 4.79 M/uL (4.7-6.1); White Blood Count 11.59 K/uL (4.8-10.8)
[2021-01-24 05:42] LABS: Albumin Level 2.7 gm/dl (3.4-5.0); C Reactive Protein 8.95 mg/dl (0-0.29); Calcium 9.1 mg/dl (8.5-10.1); Creatinine Clr Calc Pharmacy 58.3 ml/min; Est GFR (Non-African American) 45.8 ml/min; Magnesium 2.1 mg/dl (1.8-2.4); Potassium 4.1 mmol/L (3.5-5.1)
[2021-01-24 05:47] LABS: Bilirubin Direct 0.1 mg/dl (0-0.2); Bilirubin,Total 0.4 mg/dl (0.2-1); Phosphorus 4.2 mg/dl (2.5-4.9); Total Protein 7.2 gm/dl (6.4-8.2)
[2021-01-24 06:02] LABS: Basophils # (auto) 0.04 K/uL (0-0.2); Basophils % (auto) 0.3 %; Immature Granulocytes # (auto) 0.03 K/uL (0.00-0.02); Immature Granulocytes % (auto) 0.3 %; Lymphocytes # (auto) 1.15 K/uL (1.2-3.4); Lymphocytes % (auto) 9.9 %; Monocytes # (auto) 0.97 K/uL (0.11-0.59); Monocytes % (auto) 8.4 %; Neutrophils % (auto) 81.1 %
[2021-01-24] MEDS: HEPARIN SOD 5,000 UNIT/0.5 ML VIAL SQ SCH ×3 (06:14→20:05)
[2021-01-24] MEDS ORDERED: REMDESIVIR 100 MG in SODIUM CHLORIDE 0.9% 230 ML IV SCH (08:00)
[2021-01-24] MEDS: CYANOCOBALAMIN 500 MCG TABLET (VITAMIN B-12) PO SCH (08:14)
[2021-01-24] MEDS: hydrALAZINE HCL 25 MG TAB PO SCH ×2 (08:14→20:05)
[2021-01-24] MEDS: allopurinoL 100 MG TAB PO SCH ×2 (08:14→20:04)
--- NOTE | 2021-01-24 08:14 | Critical Care Progress Note ---
Date of Service January 24, 2021 Assessment & Plan (1) Admitted to intensive care unit: (2) Acute hypoxemic respiratory failure due to COVID-19: (3) COVID-19: (4) Multifocal pneumonia: (5) HANSEL on CPAP: (6) Obesity: (7) CKD (chronic kidney disease): Plan: Reason Critically Ill: 70-year-old male with acute hypoxic respiratory failure in the setting of multifocal pneumonia consistent with COVID-19 pneumonia requiring ongoing evaluation and possible need for intervention for emergent airway secondary to increasing oxygen requirement. 24-hour events: The patient received Tocilizumab. His oxygen was weaned down to 10 to 12 L. He was put on his home CPAP settings at night. He has done well clinically. Is been hemodynamically stable. Recommendations: NEURO -no current issues continue to follow clinically CAM ICU: NEGATIVE CARDIAC/VASCULAR -continue hydralazine and restart home metoprolol but will use shorter acting rather than sustained dose and start at half the dose. Hold on restarting Norvasc. Now in normal sinus rhythm with resolved tachycardia. RESPIRATORY -hypoxemic respiratory failure secondary to COVID-19 pneumonia: Continue dexamethasone. Patient has underlying sleep disordered breathing and should continue CPAP 7 cm of water with oxygen bleed at night. Titrate oxygen to maintain oxygen saturations at or above 88 to 90%. Continue pulmonary toilet. Hold additional Lasix for now. Need to mobilize out of bed to chair as tolerated. GI/NUTRITION -advance diet to heart healthy. Can discontinue H2 blockers he is taking p.o. currently. RENAL/LYTES -serum creatinine stable. Electrolytes and acid-base status appropriate. - No concerns at this time. ENDO -continue insulin dosing per pharmacy. DMII BSGs per unit protocol. ISS --> gtt per unit policy. HEME - Stable H&H ID -COVID-19 pneumonia: Outside the window for remdesivir. Continue Decadron. Received Tocilizumab. Continue to follow clinically. LINES/IV ACCESS - PIVs x1 DVT PROPHYLAXIS - Heparin sq SCDs Patient reviewed with bedside critical care nurse and on multidisciplinary rounds. Total of 40 minutes was spent in evaluation management of this patient managing care including discussion with hospitalist and coordinating care. patient appears stable to downgrade out of the intensive care unit. Discussed with the admitting hospitalist. Will sign off from a critical care standpoint once he leaves the ICU. Please contact us should the patient's clinical condition change or deteriorate. Admission and Anticipated Discharge Date Admission Date: January 23, 2021 Subjective Patient seen and examined. EMR reviewed. Discussed with the critical care NELLIE and bedside ICU nurse. Patient is doing well. He is on his home CPAP setting at 7 cm water with oxygen bleed on 50%. He is comfortable. He is not coughing. He denies any chest pain or palpitations. No nausea or vomiting. No abdominal pain. He is hungry and interested in pursuing a diet. He denies lower extremity edema. He overall feels improved. Review of Systems Review of Systems: All systems reviewed & are unremarkable except as noted in HPI & below Physical Exam Constitutional: WD/WN, vitals as above Neck: trachea midline, no thyromegaly Respiratory: no respiratory distress and no labored breathing Auscultation: + crackles and + wheezes Cardiovascular: RRR, no murmur, no edema Gastrointestinal (Abdomen): normal bowel sounds, soft, nontender, no hepatosplenomegaly Musculoskeletal: Extremities: extremities normal to inspection Skin: no rashes, warm and dry Neurologic: Nonfocal exam Lymphatic: no cervical lymphadenopathy Results & Data Results & Data ([facility]) Vital Signs (Past 12 Hours) Vital Signs Temp Pulse Pulse Resp BP Pulse Ox 01/24/21 07:48 74 19 94 01/24/21 06:32 75 22 125/66 93 01/24/21 06:02 37.0 C 77 20 116/65 94 01/24/21 05:32 75 22 120/68 94 01/24/21 05:02 74 21 122/64 94 01/24/21 04:32 79 25 H 126/66 91 01/24/21 04:01 37.0 C 86 24 130/71 92 01/24/21 03:32 78 24 99/54 L 91 01/24/21 03:02 71 20 106/52 L 96 01/24/21 03:00 79 24 97 01/24/21 02:31 78 22 114/66 96 01/24/21 02:02 37 C 77 24 103/57 L 94 01/24/21 00:31 79 24 134/60 95 01/24/21 00:02 36.7 C 82 26 H 110/55 L 96 01/23/21 23:59 87 01/23/21 23:32 81 25 H 113/55 L 95 01/23/21 23:30 79 23 94 01/23/21 23:02 87 27 H 119/65 87 L 01/23/21 22:32 87 26 H 115/64 88 L 01/23/21 22:02 36.6 C 88 25 H 122/74 88 L 01/23/21 21:32 85 25 H 133/66 89 L 01/23/21 21:02 83 26 H 123/72 88 L 01/23/21 20:32 82 23 140/69 87 L 01/23/21 20:29 84 20 89 L Critical Care Results & Data Vital Signs (Past 12 Hours) Vital Signs Temp Pulse Pulse Resp BP Pulse Ox 01/24/21 07:48 74 19 94 01/24/21 06:32 75 22 125/66 93 01/24/21 06:02 37.0 C 77 20 116/65 94 01/24/21 05:32 75 22 120/68 94 01/24/21 05:02 74 21 122/64 94 01/24/21 04:32 79 25 H 126/66 91 01/24/21 04:01 37.0 C 86 24 130/71 92 01/24/21 03:32 78 24 99/54 L 91 01/24/21 03:02 71 20 106/52 L 96 01/24/21 03:00 79 24 97 01/24/21 02:31 78 22 114/66 96 01/24/21 02:02 37 C 77 24 103/57 L 94 01/24/21 00:31 79 24 134/60 95 01/24/21 00:02 36.7 C 82 26 H 110/55 L 96 01/23/21 23:59 87 01/23/21 23:32 81 25 H 113/55 L 95 01/23/21 23:30 79 23 94 01/23/21 23:02 87 27 H 119/65 87 L 01/23/21 22:32 87 26 H 115/64 88 L 01/23/21 22:02 36.6 C 88 25 H 122/74 88 L 01/23/21 21:32 85 25 H 133/66 89 L 01/23/21 21:02 83 26 H 123/72 88 L 01/23/21 20:32 82 23 140/69 87 L 08/11/21 20:29 84 20 89 L Lab & Micro Results (Past 24 Hours) RBC 4.79 M/uL (4.7-6.1) 01/24/21 WBC 11.59 K/uL (4.8-10.8) H 01/24/21 Hgb 15.0 g/dL (14.0-18.0) 01/24/21 Hct 45.3 % (42-52) 01/24/21 MCV 94.6 fL (80-100) 01/24/21 MCH 31.3 pg (25-34) 01/24/21 MCHC 33.1 g/dL (32-36) 01/24/21 RDW Standard Deviation 51.0 fL (36.4-46.3) H 01/24/21 RDW Coefficient of Variation 14.6 % (11.5-14.5) H 01/24/21 Plt Count 242 K/uL (130-400) 01/24/21 MPV 10.8 fL (7.4-10.4) H 01/24/21 Neutrophils (%) (Auto) 81.1 % 01/24/21 Lymphocytes (%) (Auto) 9.9 % 01/24/21 Monocytes # (Auto) 0.97 K/uL (0.11-0.59) H 01/24/21 Eosinophils # (Auto) 0.00 K/uL (0-0.5) 01/24/21 Immature Granulocyte % (Auto) 0.3 % 01/24/21 Neutrophils # (Auto) 9.40 K/uL (1.4-6.5) H 01/24/21 Lymphocytes # (Auto) 1.15 K/uL (1.2-3.4) L 01/24/21 Monocytes # (Auto) 0.97 K/uL (0.11-0.59) H 01/24/21 Eosinophils # (Auto) 0.00 K/uL (0-0.5) 01/24/21 Basophils # (Auto) 0.04 K/uL (0-0.2) 01/24/21 Immature Granulocyte # (Auto) 0.03 K/uL (0.00-0.02) H 01/24/21 Na 139 mmol/L (136-145) 01/24/21 K 4.1 mmol/L (3.5-5.1) 01/24/21 Cl 107 mmol/L (98-107) 01/24/21 CO2 27 mmol/L (21-32) 01/24/21 Anion Gap 5.0 (3-11) 01/24/21 BUN 53 mg/dl (7-18) H 01/24/21 Creatinine 1.52 mg/dl (0.6-1.4) H 01/24/21 Estimated GFR ( Amer) 53.0 ml/min 01/24/21 Estimated GFR (Non-Af Amer) 45.8 ml/min 01/24/21 BUN/Creatinine Ratio 35.0 (10-20) H 01/24/21 Glu 139 mg/dl (70-99) H 01/24/21 Ca 9.1 mg/dl (8.5-10.1) 01/24/21 Phosphorus Level 4.2 mg/dl (2.5-4.9) 01/24/21 Total Bilirubin 0.4 mg/dl (0.2-1) 01/24/21 Direct Bilirubin 0.1 mg/dl (0-0.2) 01/24/21 AST 41 U/L (15-37) H 01/24/21 ALT 29 U/L (12-78) 01/24/21 Alkaline Phosphatase 48 U/L (45-117) 01/24/21 TP 7.2 gm/dl (6.4-8.2) 01/24/21 Albumin 2.7 gm/dl (3.4-5.0) L 01/24/21 2 Mg 2.1 mg/dl (1.8-2.4) 01/24/21 05:06 01/24/21 Calcium Level 9.1 mg/dl (8.5-10.1) 01/24/21 05:06 01/24/21 Microbiology 01/22/21 23:29 Aerobic Blood Culture - Preliminary Blood No growth in Aerobic bottle after 24 hours. Anaerobic Blood Culture - Preliminary 01/22/21 23:33 Aerobic Blood Culture - Preliminary Blood No growth in Aerobic bottle after 24 hours. Anaerobic Blood Culture - Preliminary Gram positive cocci Diagnostic Findings (Past 24 Hours) Chest x-ray from this morning was independently reviewed. There are persistent patchy bilateral opacities stable to slightly improved from 01/22 I & O Totals 24 Hours 01/23/21 01/24/21 01/25/21 06:59 06:59 06:59 Intake Total 100 / 100 1700 / 1700 Output Total 0 / 0 1410 / 1410 Balance 100 / 100 290 / 290 Cumulative 01/22/21 21:55 thru 01/24/21 06:30 Intake Total 1800 Output Total 1410 Balance 390 RT Ventilator Mngmt (Last Documented) Ventilator Ordered Settings Respiratory Rate 19 01/24/21 07:48 Fraction of Inspired Oxygen 50 01/24/21 07:48 Ventilator - PT Measurements Respiratory Rate 19 Coding Level of Care Code 20299 Subseq Hosp Care Lvl 3 Diagnoses Admitted to intensive care unit Z78.9 Acute hypoxemic respiratory failure due to COVID-19 U07.1; J96.01 COVID-19 U07.1 Multifocal pneumonia J18.9 HANSEL on CPAP G47.33; Z99.89 Obesity E66.9 CKD (chronic kidney disease) N18.9 Time Spent (min) 40
[2021-01-24] MEDS: dexAMETHasone 6 MG in SYRINGE 0 ML IV SCH (08:17)
--- NOTE | 2021-01-24 08:17 | XRay Report ---
XR chest 1V portable HISTORY: Shortness of breath. covid pneumonia COMPARISON: 01/22/2021. FINDINGS: There are low lung volumes with scattered patchy bilateral airspace opacities consistent wi th a viral pneumonia. No pneumothorax. No pleural effusions. The heart remains enlarged. IMPRESSION: No change in the bilateral patchy airspace opacities consistent with a viral pneumonia. ACT 112: Negative or not required by law. Electronically signed by: Cleveland Bailon M.D. 01/24/2021 8:16 AM
[2021-01-24] MEDS: METOPROLOL TARTRATE 50 MG TAB PO SCH ×2 (08:24→20:05)
[2021-01-24] MEDS ORDERED: INSULIN HUMAN NPH SC SCH (09:00)
--- NOTE | 2021-01-24 10:15 | Pharmacy Report ---
Pharmacy Glycemic Short Note 2 - Date of Service January 24, 2021 - Glycemic Short BSG Results (Last 24 hours): 01/23/21 01/23/21 01/23/21 11:11 15:32 19:41 Glucose POC Glucose 165 H 149 H 131 H 01/24/21 01/24/21 01/24/21 00:07 04:07 05:06 Glucose 139 H POC Glucose 139 H 143 H 01/24/21 08:53 Glucose POC Glucose 132 H OUTPATIENT ANTIDIABETIC REGIMEN: * metformin 1gm PO BID * A1c = 6.4% 01/23/21 ASSESSMENT: 01/24 * BSGs well controlled over last 24 hrs * Fasting BSG 132 this AM w/ 20 units NPH on board, pt will be receiving 15 units NPH this AM until PO intake assessed * Given no PO intake yesterday, it is too soon to say Novolog CF/CR needs adjusted - continue same doses for now and follow post-prandials if tolerating diet 01/23 * Type 2 diabetic, well controlled w/ metformin monotherapy, admitted 01/23 for COVID pneumonia * BSGs thus far acceptable, 160s range * IV dexamethasone 6 mg daily ordered * Not currently intubated, not requiring pressors * Remains NPO due to oxygen delivery needs * Will admin NPH ~0.2 units/kg adj BW x 1 with AM dexamethasone for basal needs. * Will utilize "severe" stress Novolog correction / carb coverage PLAN FOR INPATIENT GLYCEMIC CONTROL: * Hold outpatient oral diabetes medications (metformin) * Basal insulin * NPH 15 units SQ x 1 this AM w/ IV dexamethasone, may need to supplement w/ additional if beginning/tolerating a diet today * Bolus insulin * NovoLog per scale Q4hrs while NPO * Goal Range: Low 110 mg/dL - High 140 mg/dL * Correction Factor: 18 mg/dL/unit * Nutritional / Prandial insulin per carb ratio of 1 unit per 6 grams CHO consumed PLAN FOR DISCHARGE: * may resume metformin on discharge given A1c at goal (< 6.5%) if no contraindications present
[2021-01-24] MEDS ORDERED: INSULIN HUMAN NPH SC ONE (11:30)
--- NOTE | 2021-01-24 18:20 | Hospitalist Progress Note ---
Date of Service January 24, 2021 Assessment & Plan (1) Acute hypoxemic respiratory failure due to COVID-19: Plan: Patient is a 70 yr male, who presents with shortness of breath and has COVID pneumonia. Acute on chronic respiratory failure with hypoxia COVID pneumonia COVID Screen:Positive on 01/15/21 CXR:Scattered patchy airspace opacities likely representing a viral pneumonia. There are trace bilateral pleural effusions. Procalcitonin: 0.35 CRP:13.2 Ferritin:768 D-Dimer:3910 Blood/Urine Cultures Negative to date Received Tocilizumab Continue Dexamethasone Remdesivir discontinued Isolation precautions--Airborne/Contact Appreciate Critical Care Input Encourage frequent Proning Lasix as needed Albuterol PRN Off High flow Oxygen Wean supplemental Oxygen as able DVT prophylaxis on Heparin SQ Transfer out of ICU DM II HbA1C: 6.4 Hold Metformin Continue Insulin therapy Monitor BGs Acute kidney injury on CKD III Baseline cr 1.2 Cr:1.68>1.5 Monitor renal function lisinopril and metformin held Monitor renal function Hypertension: Was on amlodipine, hydralazine, metoprolol succinate, lisinopril Resumed Hydralazine, Metoprolol Gout: On allopurinol. Obstructive sleep apnea: Uses BiPAP at bedtime. Uses Oxygen 4 L with CPAP at bedtime Morbid obesity: Needs counseling DVT Px: Heparin SQ Code Status Full Code Admission and Anticipated Discharge Date Admission Date: January 23, 2021 Subjective Patient is seen and examined at bedside Less dyspnea today No new complaints Cough continues to improve Off High flow oxygen Review of Systems Review of Systems: All systems reviewed & are unremarkable except as noted in Subjective Physical Exam Physical Exam: Physical Exam: Vitals signs as noted above General Appearance:Obese, no apparent distress Head: normocephalic, Atraumatic Eyes: normal inspection, EOMI Neck: supple, Trachea midline Respiratory/Chest: Decreased breath sounds, CTA Cardiovascular: S1, S2, No murmur Abdomen/GI:Soft, Non tender, Bowel sounds present Extremities/Musculoskeletal:normal inspection, no edema Neurologic/Psych:AAOX3, grossly no focal neurological deficits Skin: normal color, warm Results & Data Results & Data ([facility]) Vital Signs (Past 12 Hours) Vital Signs Temp Pulse Pulse Resp BP Pulse Ox 01/24/21 17:32 88 26 H 118/68 93 01/24/21 15:39 82 01/24/21 15:32 36.7 C 86 24 126/67 91 01/24/21 13:31 84 26 H 125/63 90 01/24/21 11:32 36.6 C 82 24 101/53 L 93 01/24/21 11:19 74 21 91 01/24/21 11:02 74 21 107/55 L 95 01/24/21 10:32 73 22 113/59 L 93 01/24/21 10:02 77 23 104/53 L 93 01/24/21 09:32 77 17 113/65 93 01/24/21 09:01 93 H 28 H 136/69 97 01/24/21 08:32 84 26 H 113/72 92 01/24/21 08:02 84 24 126/72 94 01/24/21 08:00 36.6 C 01/24/21 07:48 74 19 94 01/24/21 07:01 73 20 115/64 94 01/24/21 06:32 75 22 125/66 93 Laboratory Results Short CBC 01/24/21 Range/Units 05:06 WBC 11.59 H (4.8-10.8) K/uL Hgb 15.0 (14.0-18.0) g/dL Hct 45.3 (42-52) % Plt Count 242 (130-400) K/uL BMP 01/24/21 05:06 Sodium 139 Potassium 4.1 Chloride 107 Carbon Dioxide 27 BUN 53 H D Creatinine 1.52 H Glucose 139 H Calcium 9.1 Liver Function 01/24/21 Range/Units 05:06 Total Bilirubin 0.4 (0.2-1) mg/dl Direct Bilirubin 0.1 (0-0.2) mg/dl AST 41 H (15-37) U/L ALT 29 (12-78) U/L Alkaline Phosphatase 48 (45-117) U/L Albumin 2.7 L (3.4-5.0) gm/dl
[2021-01-25] MEDS: INSULIN ASPART 100 UNITS/ML 3 ML PEN SC SCH ×5 (04:06→21:44)
[2021-01-25 05:24] LABS: Hematocrit (blood only) 45.2 % (42-52); Hemoglobin 15.2 g/dL (14.0-18.0); Mean Corpuscular Hgb Conc 33.6 g/dL (32-36); Mean Corpuscular Volume 95.2 fL (80-100); Mean Platelet Volume 10.5 fL (7.4-10.4); Platelet Count 263 K/uL (130-400); RDW Coefficient of Variation 14.7 % (11.5-14.5); RDW Standard Deviation 51.3 fL (36.4-46.3); Red Blood Count 4.75 M/uL (4.7-6.1); White Blood Count 12.99 K/uL (4.8-10.8)
[2021-01-25 05:44] LABS: Albumin Level 2.6 gm/dl (3.4-5.0); BUN Creatinine Ratio 44.9 (10-20); Calcium 9.2 mg/dl (8.5-10.1); Creatinine Clr Calc Pharmacy 79.7 ml/min; Est GFR (African American) 76.7 ml/min; Est GFR (Non-African American) 66.2 ml/min; Magnesium 2.6 mg/dl (1.8-2.4); Potassium 4.2 mmol/L (3.5-5.1)
[2021-01-25 05:50] LABS: Bilirubin,Total 0.5 mg/dl (0.2-1); Phosphorus 3.2 mg/dl (2.5-4.9); Total Protein 6.7 gm/dl (6.4-8.2)
[2021-01-25 05:56] LABS: Basophils # (auto) 0.03 K/uL (0-0.2); Basophils % (auto) 0.2 %; Immature Granulocytes # (auto) 0.07 K/uL (0.00-0.02); Immature Granulocytes % (auto) 0.5 %; Lymphocytes # (auto) 1.17 K/uL (1.2-3.4); Monocytes % (auto) 7.7 %; Neutrophils # (auto) 10.72 K/uL (1.4-6.5); Neutrophils % (auto) 82.6 %; RBC Morphology Unremarkable
[2021-01-25] MEDS: HEPARIN SOD 5,000 UNIT/0.5 ML VIAL SQ SCH ×3 (06:30→21:43)
[2021-01-25] MEDS: CYANOCOBALAMIN 500 MCG TABLET (VITAMIN B-12) PO SCH (07:25)
[2021-01-25] MEDS: METOPROLOL TARTRATE 50 MG TAB PO SCH ×2 (07:25→21:42)
[2021-01-25] MEDS: hydrALAZINE HCL 25 MG TAB PO SCH ×2 (07:25→21:43)
[2021-01-25] MEDS: allopurinoL 100 MG TAB PO SCH ×2 (07:25→21:43)
[2021-01-25] MEDS: dexAMETHasone 6 MG in SYRINGE 0 ML IV SCH (07:25)
[2021-01-25] MEDS ORDERED: ALBUTEROL HFA 8 GM INHALER INH PRN (07:44)
[2021-01-25] MEDS ORDERED: INSULIN HUMAN NPH SC SCH (09:00)
[2021-01-25 10:42] LABS: Bilirubin Direct 0.2 mg/dl (0-0.2)
--- NOTE | 2021-01-25 11:27 | XRay Report ---
XR chest 1V portable CLINICAL HISTORY: covid pneumonia COMPARISON STUDY: January 24, 2021 FINDINGS: No pneumothorax. No pleural effusion. Lung volumes are decreased with crowded lung markings. Mild interval worsening of patchy bilateral ai rspace opacities likely representing multifocal pneumonia. The mediastinal silhouette is stable. Vasculature is indistinct.. Osseous structures: unremarkable vertebral bodies are not well seen. IMPRESSION: 1. Multifocal pneumonia, stable since prior. Limited exam due to low inspiratory effort. ACT 112: Negative or not required by law. The above report was generated using voice recognition software. It may contain grammatical, syntax o r spelling errors. Electronically signed by: Doris Hargrove DO 01/25/2021 11:26 AM
--- NOTE | 2021-01-25 12:06 | Pharmacy Report ---
Pharmacy Glycemic Short Note 2 - Date of Service January 25, 2021 - Glycemic Short BSG Results (Last 24 hours): 01/24/21 01/24/21 01/24/21 16:44 20:17 23:49 Glucose POC Glucose 120 H 160 H 125 H 01/25/21 01/25/21 01/25/21 04:00 05:06 07:38 Glucose 120 H POC Glucose 110 H 103 H 01/25/21 11:44 Glucose POC Glucose 116 H OUTPATIENT ANTIDIABETIC REGIMEN: * metformin 1gm PO BID * A1c = 6.4% 01/23/21 ASSESSMENT: 01/25 * 54 units SQ administered over last 24 hrs while tolerating a diet * BSGs at goal over last 24 hrs * Fasting BSG 103 this AM having receive 30 units NPH yesterday - will continue the same today, may need to titrate dose down in near future * Post-prandial BSGs well controlled w/ current Novolog CR/CF, but given slight downward trend will reduce doses slightly today * IV dexamethasone 6mg daily continues 01/24 * BSGs well controlled over last 24 hrs * Fasting BSG 132 this AM w/ 20 units NPH on board, pt will be receiving 15 units NPH this AM until PO intake assessed * Given no PO intake yesterday, it is too soon to say Novolog CF/CR needs adjusted - continue same doses for now and follow post-prandials if tolerating diet 01/23 * Type 2 diabetic, well controlled w/ metformin monotherapy, admitted 01/23 for COVID pneumonia * BSGs thus far acceptable, 160s range * IV dexamethasone 6 mg daily ordered * Not currently intubated, not requiring pressors * Remains NPO due to oxygen delivery needs * Will admin NPH ~0.2 units/kg adj BW x 1 with AM dexamethasone for basal needs. * Will utilize "severe" stress Novolog correction / carb coverage PLAN FOR INPATIENT GLYCEMIC CONTROL: * Hold outpatient oral diabetes medications (metformin) * Basal insulin * NPH 30 units SQ Q AM w/ IV dexamethasone, may need to titrate dose down in near future * Bolus insulin * NovoLog per scale ACHS * Goal Range: Low 110 mg/dL - High 140 mg/dL * Correction Factor: 20 mg/dL/unit * Nutritional / Prandial insulin per carb ratio of 1 unit per 7 grams CHO consumed PLAN FOR DISCHARGE: * may resume metformin on discharge given A1c at goal (< 6.5%) if no contraindications present
--- NOTE | 2021-01-25 16:19 | Hospitalist Progress Note ---
Date of Service January 25, 2021 Assessment & Plan (1) Acute hypoxemic respiratory failure due to COVID-19: Plan: Patient is a 70 yr male, who presents with shortness of breath and has COVID pneumonia. Acute on chronic respiratory failure with hypoxia COVID pneumonia COVID Screen:Positive on 01/15/21 CXR:Scattered patchy airspace opacities likely representing a viral pneumonia. There are trace bilateral pleural effusions. Procalcitonin: 0.35 CRP:13.2>8.95 Ferritin:768 D-Dimer:3910 Received Tocilizumab Continue Dexamethasone Day #3 Remdesivir discontinued Isolation precautions--Airborne/Contact Appreciate Critical Care Input Encourage frequent Proning Lasix as needed Albuterol PRN Off High flow Oxygen Wean supplemental Oxygen to keep Sats > 92 DVT prophylaxis on Heparin SQ CXR today unchanged Consider CTA to R/O PE if hypoxia persists Abnormal Blood Culture: Likely contamination Repeat Blood cultures ordered DM II HbA1C: 6.4 Hold Metformin Continue Insulin therapy Monitor BGs Acute kidney injury on CKD III Baseline cr 1.2 Cr:1.68>1.5> 1.12 Monitor renal function lisinopril and metformin held Monitor renal function Hypertension: Was on amlodipine, hydralazine, metoprolol succinate, lisinopril Continue Hydralazine, Metoprolol Gout: On allopurinol. Obstructive sleep apnea: Uses BiPAP at bedtime. Uses Oxygen 4 L with CPAP at bedtime Morbid obesity: Needs counseling DVT Px: Heparin SQ Code Status Full Code Admission and Anticipated Discharge Date Admission Date: January 23, 2021 Subjective Patient is seen and examined at bedside No new complaints Still requiring 12 Liters of supplemental oxygen Cough persistent but improving Denies chest pain, dizziness, nausea, abd pain Review of Systems Review of Systems: All systems reviewed & are unremarkable except as noted in Subjective Physical Exam Physical Exam: Physical Exam: Vitals signs as noted above General Appearance:Obese, no apparent distress Head: normocephalic, Atraumatic Eyes: normal inspection, EOMI Neck: supple, Trachea midline Respiratory/Chest: Decreased breath sounds, CTA Cardiovascular: S1, S2, No murmur Abdomen/GI:Soft, Non tender, Bowel sounds present Extremities/Musculoskeletal:normal inspection, no edema Neurologic/Psych:AAOX3, grossly no focal neurological deficits Skin: normal color, warm Results & Data Results & Data ([facility]) Vital Signs (Past 12 Hours) Vital Signs Temp Pulse Resp BP Pulse Ox 01/25/21 09:31 69 24 125/63 90 01/25/21 07:32 36.8 C 60 22 123/65 94 Laboratory Results Short CBC 01/25/21 Range/Units 05:06 WBC 12.99 H (4.8-10.8) K/uL Hgb 15.2 (14.0-18.0) g/dL Hct 45.2 (42-52) % Plt Count 263 (130-400) K/uL BMP 01/25/21 05:06 Sodium 142 Potassium 4.2 Chloride 110 H Carbon Dioxide 29 BUN 50 H Creatinine 1.12 D Glucose 120 H Calcium 9.2 Liver Function 01/25/21 Range/Units 05:06 Total Bilirubin 0.5 (0.2-1) mg/dl Direct Bilirubin 0.2 D (0-0.2) mg/dl AST 38 H (15-37) U/L ALT 33 (12-78) U/L Alkaline Phosphatase 47 (45-117) U/L Albumin 2.6 L (3.4-5.0) gm/dl
[2021-01-26] MEDS: HEPARIN SOD 5,000 UNIT/0.5 ML VIAL SQ SCH (04:55)
[2021-01-26 06:25] LABS: Hematocrit (blood only) 45.5 % (42-52); Hemoglobin 15.2 g/dL (14.0-18.0); Mean Corpuscular Hemoglobin 31.2 pg (25-34); Mean Corpuscular Hgb Conc 33.4 g/dL (32-36); Mean Corpuscular Volume 93.4 fL (80-100); Mean Platelet Volume 10.8 fL (7.4-10.4); Platelet Count 246 K/uL (130-400); RDW Coefficient of Variation 14.6 % (11.5-14.5); Red Blood Count 4.87 M/uL (4.7-6.1); White Blood Count 10.71 K/uL (4.8-10.8)
[2021-01-26 06:42] LABS: Basophils # (auto) 0.02 K/uL (0-0.2); Basophils % (auto) 0.2 %; Immature Granulocytes # (auto) 0.08 K/uL (0.00-0.02); Immature Granulocytes % (auto) 0.7 %; Lymphocytes # (auto) 1.12 K/uL (1.2-3.4); Lymphocytes % (auto) 10.5 %; Monocytes # (auto) 0.88 K/uL (0.11-0.59); Monocytes % (auto) 8.2 %; Neutrophils # (auto) 8.61 K/uL (1.4-6.5); Neutrophils % (auto) 80.4 %
[2021-01-26 06:50] LABS: D Dimer 10640 ug/L FEU (0-500)
[2021-01-26 07:09] LABS: Albumin Level 2.7 gm/dl (3.4-5.0); Bilirubin Direct 0.2 mg/dl (0-0.2); Calcium 9.2 mg/dl (8.5-10.1); Creatinine Clr Calc Pharmacy 104.6 ml/min; Est GFR (African American) 94.8 ml/min; Est GFR (Non-African American) 81.8 ml/min; Magnesium 2.4 mg/dl (1.8-2.4); Potassium 4.2 mmol/L (3.5-5.1)
[2021-01-26 07:12] LABS: Bilirubin,Total 0.6 mg/dl (0.2-1); C Reactive Protein 2.01 mg/dl (0-0.29); Ferritin 603.3 ng/ml (8-388); Total Protein 6.7 gm/dl (6.4-8.2)
[2021-01-26] MEDS ORDERED: OPTIRAY 320 125ml IV ONE (08:31)
--- NOTE | 2021-01-26 08:59 | CT Scan Report ---
CT angio chest PE protocol CT DOSE: 495.25 mGycm HISTORY: 70 years-old Male with PE. Acute shortness of breath with hypoxia. COVID Positive. TECHNIQUE: Multiple CTA images of the chest were obtained after the intravenous administration of 120 ml Optiray. Coronal and sagittal MIPS were obtained from the axial data set and were submitted for review. All measurements were obtained according to NASCET criteria. A dose lowering technique was u tilized adhering to the principles of ALARA. COMPARISON: Chest radiograph of same day, CTA chest 12/17/2013 FINDINGS: CTA: The heart is upper limits of normal in size. No pericardial effusion. Mild to moderate coronary arter y calcifications. Mild fusiform dilation of the ascending thoracic aorta, 4.0 x 4.0 cm. No dissection . Patency of the imaged great vessels. Segmental and subsegmental pulmonary emboli of the right lower lobe with additional subsegmental pulmonary emboli of the right upper and middle lobes. Respiratory motion artifact limits the study. Questioned subsegmental pulmonary emboli of the left lung. No evide nce of right heart strain. CT CHEST: 11 mm hypodense left thyroid nodule. Right hilar adenopathy measures up to 3.0 x 1.67 m. Subcarinal l ymph nodes measure up to 1.3 cm in short axis. No pneumothorax or pleural effusion. Extensive bilater al multilobar and multi segmental distribution of groundglass opacities coalescing to form areas of c onsolidation. The central airways are patent. No acute process of the imaged upper abdomen. Probable cyst of the left hepatic lobe, 1.5 cm. Unremar kable soft tissues. Degenerative changes of the shoulders and spine. IMPRESSION: 1. Segmental and subsegmental pulmonary emboli as above. No evidence of right heart strain. 2. Multilobar extensive bilateral groundglass and coalescing alveolar opacities compatible with multi focal pneumonia, likely viral etiology. 3. Mediastinal and hilar adenopathy, likely reactive. ACT 112: Negative or not required by law. The above report was generated using voice recognition software. It may contain grammatical, syntax o r spelling errors. Electronically signed by: Trace Smith M.D. 01/26/2021 8:58 AM
[2021-01-26] MEDS: allopurinoL 100 MG TAB PO SCH ×2 (09:18→20:25)
[2021-01-26] MEDS: dexAMETHasone 6 MG in SYRINGE 0 ML IV SCH (09:18)
[2021-01-26] MEDS: hydrALAZINE HCL 25 MG TAB PO SCH ×2 (09:18→20:25)
[2021-01-26] MEDS: METOPROLOL TARTRATE 50 MG TAB PO SCH ×2 (09:18→20:26)
[2021-01-26] MEDS: CYANOCOBALAMIN 500 MCG TABLET (VITAMIN B-12) PO SCH (09:18)
[2021-01-26] MEDS: INSULIN ASPART 100 UNITS/ML 3 ML PEN SC SCH ×3 (09:24→17:49)
[2021-01-26] MEDS: INSULIN HUMAN NPH SC SCH (09:25)
[2021-01-26] MEDS: ENOXAPARIN 150 MG/ML SYR SQ SCH ×2 (10:20→20:23)
--- NOTE | 2021-01-26 11:33 | Pharmacy Report ---
Pharmacy Glycemic Short Note 2 - Date of Service January 26, 2021 - Glycemic Short BSG Results (Last 24 hours): 01/25/21 01/25/21 01/25/21 11:44 16:36 21:36 Glucose POC Glucose 116 H 113 H 121 H 01/26/21 01/26/21 01/26/21 00:13 05:54 08:57 Glucose 99 POC Glucose 121 H 91 OUTPATIENT ANTIDIABETIC REGIMEN: * metformin 1gm PO BID * A1c = 6.4% 01/23/21 ASSESSMENT: 01/26 * Pt has received 34 units of insulin over the past 24hrs * 30 units of NPH for steroid induced hyperglycemia * 4 units of bolus with NovoLog * BSGs [phone] * BSGs all in goal range but concern for LOW BSG tomorrow if orders are not empirically adjusted- PO intake significantly decreased from previous days. * Dexamethasone continues at 6mg IV daily - will continue NPH dosing to cover steroid induced hyperglycemia but will decrease dosing slightly to prevent LOW with reduced PO intake. * No basal insulin with Lantus warranted based on A1c * No changes needed to CF/CR 01/25 * 54 units SQ administered over last 24 hrs while tolerating a diet * BSGs at goal over last 24 hrs * Fasting BSG 103 this AM having receive 30 units NPH yesterday - will continue the same today, may need to titrate dose down in near future * Post-prandial BSGs well controlled w/ current Novolog CR/CF, but given slight downward trend will reduce doses slightly today * IV dexamethasone 6mg daily continues 01/24 * BSGs well controlled over last 24 hrs * Fasting BSG 132 this AM w/ 20 units NPH on board, pt will be receiving 15 units NPH this AM until PO intake assessed * Given no PO intake yesterday, it is too soon to say Novolog CF/CR needs adjusted - continue same doses for now and follow post-prandials if tolerating diet 01/23 * Type 2 diabetic, well controlled w/ metformin monotherapy, admitted 01/23 for COVID pneumonia * BSGs thus far acceptable, 160s range * IV dexamethasone 6 mg daily ordered * Not currently intubated, not requiring pressors * Remains NPO due to oxygen delivery needs * Will admin NPH ~0.2 units/kg adj BW x 1 with AM dexamethasone for basal needs. * Will utilize "severe" stress Novolog correction / carb coverage PLAN FOR INPATIENT GLYCEMIC CONTROL: * Hold outpatient oral diabetes medications (metformin) * Basal insulin: decrease by 10% * NPH 27 units SQ Q AM w/ IV dexamethasone * Bolus insulin: no change * NovoLog per scale ACHS * Goal Range: Low 110 mg/dL - High 140 mg/dL * Correction Factor: 20 mg/dL/unit * Nutritional / Prandial insulin per carb ratio of 1 unit per 7 grams CHO consumed PLAN FOR DISCHARGE: * may resume metformin on discharge given A1c at goal (< 6.5%) if no contraindications present
--- NOTE | 2021-01-26 17:30 | Hospitalist Progress Note ---
Date of Service January 26, 2021 Assessment & Plan (1) Acute hypoxemic respiratory failure due to COVID-19: Plan: Patient is a 70 yr male, who presents with shortness of breath and has COVID pneumonia. Acute on chronic respiratory failure with hypoxia COVID pneumonia COVID Screen:Positive on 01/15/21 CXR:Scattered patchy airspace opacities likely representing a viral pneumonia. There are trace bilateral pleural effusions. Procalcitonin: 0.35 CRP:13.2>8.95 Ferritin:768 D-Dimer:[id number] Received Tocilizumab Continue Dexamethasone Day #4 Remdesivir discontinued Isolation precautions--Airborne/Contact Appreciate Critical Care Input Encourage frequent Proning Lasix as needed Albuterol PRN Off High flow Oxygen Wean supplemental Oxygen to keep Sats > 92 DVT prophylaxis on Lovenox SQ Acute Pulmonary Embolism Likely present on admission -CTA:Segmental and subsegmental pulmonary emboli as above. No evidence of right heart strain. Multilobar extensive bilateral groundglass and coalescing alveolar opacities compatible with multifocal pneumonia, likely viral etiology. Mediastinal and hilar adenopathy, likely reactive. -Started on Therapeutic Lovenox Abnormal Blood Culture: Likely contamination Repeat Blood cultures pending DM II HbA1C: 6.4 Hold Metformin Continue Insulin therapy Monitor BGs Acute kidney injury on CKD III Baseline cr 1.2 Cr:1.68>1.5> 1.12>0.94 Monitor renal function lisinopril and metformin held Monitor renal function Hypertension: Was on amlodipine, hydralazine, metoprolol succinate, lisinopril Continue Hydralazine, Metoprolol Gout: On allopurinol. Obstructive sleep apnea: Uses BiPAP at bedtime. Uses Oxygen 4 L with CPAP at bedtime Morbid obesity: Needs counseling DVT Px: Lovenox SQ Code Status Full Code Admission and Anticipated Discharge Date Admission Date: January 23, 2021 Subjective Patient is seen and examined at bedside Requiring less oxygen to maintain Sats Less cough and dyspnea today Denies chest pain, dizziness, nausea, abd pain CTA showed PE Review of Systems Review of Systems: All systems reviewed & are unremarkable except as noted in Subjective Physical Exam Physical Exam: Physical Exam: Vitals signs as noted above General Appearance:Obese, no apparent distress Head: normocephalic, Atraumatic Eyes: normal inspection, EOMI Neck: supple, Trachea midline Respiratory/Chest: Decreased breath sounds, CTA Cardiovascular: S1, S2, No murmur Abdomen/GI:Soft, Non tender, Bowel sounds present Extremities/Musculoskeletal:normal inspection, no edema Neurologic/Psych:AAOX3, grossly no focal neurological deficits Skin: normal color, warm Results & Data Results & Data ([facility]) Vital Signs (Past 12 Hours) Vital Signs Temp Pulse Pulse Resp BP Pulse Ox 01/26/21 15:32 71 01/26/21 12:00 36.8 C 82 20 143/84 H 95 01/26/21 09:05 76 20 153/95 H 94 01/26/21 07:23 72 Laboratory Results Short CBC 01/26/21 Range/Units 05:54 WBC 10.71 (4.8-10.8) K/uL Hgb 15.2 (14.0-18.0) g/dL Hct 45.5 (42-52) % Plt Count 246 (130-400) K/uL BMP 01/26/21 05:54 Sodium 143 Potassium 4.2 Chloride 111 H Carbon Dioxide 28 BUN 42 H Creatinine 0.94 Glucose 99 Calcium 9.2 Liver Function 01/26/21 Range/Units 05:54 Total Bilirubin 0.6 (0.2-1) mg/dl Direct Bilirubin 0.2 (0-0.2) mg/dl AST 60 H (15-37) U/L ALT 55 (12-78) U/L Alkaline Phosphatase 49 (45-117) U/L Albumin 2.7 L (3.4-5.0) gm/dl
[2021-01-27] MEDS: INSULIN ASPART 100 UNITS/ML 3 ML PEN SC SCH ×5 (02:36→20:57)
[2021-01-27 06:31] LABS: Creatinine Clr Calc Pharmacy 106.9 ml/min; Est GFR (African American) 97.3 ml/min
[2021-01-27] MEDS: dexAMETHasone 6 MG in SYRINGE 0 ML IV SCH (09:02)
[2021-01-27] MEDS: METOPROLOL TARTRATE 50 MG TAB PO SCH ×2 (09:03→20:47)
[2021-01-27] MEDS: ENOXAPARIN 150 MG/ML SYR SQ SCH ×2 (09:03→20:46)
[2021-01-27] MEDS: hydrALAZINE HCL 25 MG TAB PO SCH ×2 (09:04→20:47)
[2021-01-27] MEDS: CYANOCOBALAMIN 500 MCG TABLET (VITAMIN B-12) PO SCH (09:04)
[2021-01-27] MEDS: allopurinoL 100 MG TAB PO SCH ×2 (09:04→20:46)
[2021-01-27] MEDS: INSULIN HUMAN NPH SC SCH (09:40)
[2021-01-27] MEDS: amLODIPine BESYLATE 5 MG TAB PO SCH (12:01)
--- NOTE | 2021-01-27 17:57 | Hospitalist Progress Note ---
Date of Service January 27, 2021 Assessment & Plan (1) Acute hypoxemic respiratory failure due to COVID-19: Plan: Patient is a 70 yr male, who presents with shortness of breath and has COVID pneumonia. Acute on chronic respiratory failure with hypoxia COVID pneumonia COVID Screen:Positive on 01/15/21 CXR:Scattered patchy airspace opacities likely representing a viral pneumonia. There are trace bilateral pleural effusions. Procalcitonin: 0.35 CRP:13.2>8.95 Ferritin:768 D-Dimer:[id number] Received Tocilizumab Continue Dexamethasone Day #5 Remdesivir discontinued Isolation precautions--Airborne/Contact Appreciate Critical Care Input Encourage frequent Proning Lasix as needed Albuterol PRN Off High flow Oxygen Wean supplemental Oxygen to keep Sats > 92 DVT prophylaxis on Lovenox SQ Continue to wean oxygen as able May need 2 step prior to discharge Acute Pulmonary Embolism Likely present on admission -CTA:Segmental and subsegmental pulmonary emboli as above. No evidence of right heart strain. Multilobar extensive bilateral groundglass and coalescing alveolar opacities compatible with multifocal pneumonia, likely viral etiology. Mediastinal and hilar adenopathy, likely reactive. -Continue Therapeutic Lovenox for now Transition to oral anticoagulation upon discharge Abnormal Blood Culture: Likely contamination Repeat Blood cultures no growth to date DM II HbA1C: 6.4 Hold Metformin Continue Insulin therapy Monitor BGs Acute kidney injury on CKD III Baseline cr 1.2 Cr:1.68>1.5> 1.12>0.92 Monitor renal function lisinopril and metformin held Monitor renal function Hypertension: Continue Hydralazine, Metoprolol, amlodipine Plan to resume lisinopril as able Steroids likely contributing to elevated BP Gout: On allopurinol. Obstructive sleep apnea: Uses BiPAP at bedtime. Uses Oxygen 4 L with CPAP at bedtime Morbid obesity: Needs counseling DVT Px: Lovenox SQ Code Status Full Code Admission and Anticipated Discharge Date Admission Date: January 23, 2021 Subjective Patient is seen and examined at bedside Doing well today No new complaints Requires 2 L of supplemental oxygen to maintain saturation Cough continues to improve Denies dyspnea, chest pain, dizziness, nausea, abd pain Review of Systems Review of Systems: All systems reviewed & are unremarkable except as noted in Subjective Physical Exam Physical Exam: Physical Exam: Vitals signs as noted above General Appearance:Obese, no apparent distress Head: normocephalic, Atraumatic Eyes: normal inspection, EOMI Neck: supple, Trachea midline Respiratory/Chest: Decreased breath sounds, CTA Cardiovascular: S1, S2, No murmur Abdomen/GI:Soft, Non tender, Bowel sounds present Extremities/Musculoskeletal:normal inspection, no edema Neurologic/Psych:AAOX3, grossly no focal neurological deficits Skin: normal color, warm Results & Data Results & Data ([facility]) Vital Signs (Past 12 Hours) Vital Signs Temp Pulse Pulse Pulse Resp BP BP 01/27/21 16:16 36.4 C L 79 20 170/93 H 01/27/21 16:00 70 01/27/21 12:02 36.3 C L 77 18 144/93 H 01/27/21 08:00 69 01/27/21 07:53 36.5 C 79 19 171/90 H Pulse Ox 01/27/21 16:16 91 01/27/21 16:00 01/27/21 12:02 93 01/27/21 08:00 01/27/21 07:53 94 Laboratory Results BMP 01/27/21 05:29 Creatinine 0.92 Liver Function 01/27/21 Range/Units 05:29 AST 74 H (15-37) U/L ALT 97 H (12-78) U/L
[2021-01-28 06:20] LABS: Hematocrit (blood only) 46.6 % (42-52); Hemoglobin 15.7 g/dL (14.0-18.0); Mean Corpuscular Hemoglobin 31.5 pg (25-34); Mean Corpuscular Hgb Conc 33.7 g/dL (32-36); Mean Corpuscular Volume 93.6 fL (80-100); Nucleated RBC # (auto) 0.02 K/uL (0-0); Nucleated RBC % (auto) 0.1 %; Platelet Count 271 K/uL (130-400); RDW Coefficient of Variation 14.6 % (11.5-14.5); RDW Standard Deviation 48.8 fL (36.4-46.3); Red Blood Count 4.98 M/uL (4.7-6.1); White Blood Count 12.56 K/uL (4.8-10.8)
[2021-01-28 06:49] LABS: BUN Creatinine Ratio 31.4 (10-20); Calcium 9.6 mg/dl (8.5-10.1); Creatinine Clr Calc Pharmacy 91.9 ml/min; Est GFR (African American) 81.1 ml/min; Potassium 4.5 mmol/L (3.5-5.1)
--- NOTE | 2021-01-28 07:52 | Pharmacy Report ---
Pharmacy Glycemic Sign Off Nt - Date of Service January 28, 2021 - Assessment & Plan ASSESSMENT: * Pharmacy consulted for glycemic management 2nd steroids. * BSG's have ranged 91-139 mg/dL over the last 48 hours (except for a 271 mg/dL at dinner on 01/26 - ? post-prandial BSG). * Stressors stable. Dex day 6 of 10. * Pharmacy signing off now - discussed with Dr. Price * Patient may require adjustment of glycemic regimen when dexamethasone is stopped - discussed with Dr. Price. Please feel free to re-consult or to call pharmacy for recommendations if/when that occurs. Per Dr. Price - may discharge today off steroids PLAN FOR INPATIENT GLYCEMIC CONTROL: No changes needed to current regimen. * Continue basal insulin with NPH 23-27 units SQ qAM with dexamethasone (both scheduled to stop on 02/02) * Continue NovoLog per scale ACHS/Q6hrs while NPO * Goal range = 110 140 mg/dl * CF = 20 mg/dl/unit * CR = 1 unit for ever 7 g CHO consumed * Pharmacy is signing off of glycemic consult and will no longer be making adjustments to inpatient regimen. Please feel free to re-consult if needed. Thank you. DISCHARGE RECOMMENDATIONS: * If not going home on steroids, resume home metformin if no contraindications present at discharge
[2021-01-28] MEDS: amLODIPine BESYLATE 5 MG TAB PO SCH (07:59)
[2021-01-28] MEDS: hydrALAZINE HCL 25 MG TAB PO SCH (07:59)
[2021-01-28] MEDS: CYANOCOBALAMIN 500 MCG TABLET (VITAMIN B-12) PO SCH (07:59)
[2021-01-28] MEDS: METOPROLOL TARTRATE 50 MG TAB PO SCH (08:00)
[2021-01-28] MEDS: ENOXAPARIN 150 MG/ML SYR SQ SCH (08:01)
[2021-01-28] MEDS: INSULIN ASPART 100 UNITS/ML 3 ML PEN SC SCH ×3 (08:29→17:43)
[2021-01-28] MEDS: dexAMETHasone 6 MG in SYRINGE 0 ML IV SCH (08:34)
[2021-01-28] MEDS ORDERED: INSULIN HUMAN NPH SC SCH (09:00)
[2021-01-28] MEDS: allopurinoL 100 MG TAB PO SCH (11:52)
--- NOTE | 2021-01-28 13:45 | Hospitalist Progress Note ---
Date of Service January 28, 2021 Assessment & Plan (1) Acute hypoxemic respiratory failure due to COVID-19: Plan: Patient is a 70 yr male, who presents with shortness of breath and has COVID pneumonia. Acute on chronic respiratory failure with hypoxia COVID pneumonia COVID Screen:Positive on 01/15/21 CXR:Scattered patchy airspace opacities likely representing a viral pneumonia. There are trace bilateral pleural effusions. Procalcitonin: 0.35 CRP:13.2>8.95 Ferritin:768 D-Dimer:[id number] Received Tocilizumab Continue Dexamethasone Day #6 Remdesivir discontinued Isolation precautions--Airborne/Contact Appreciate Critical Care Input Encourage frequent Proning Lasix as needed Albuterol PRN Off High flow Oxygen DVT prophylaxis on Lovenox SQ Transition to Eliquis upon discharge 2 Step: Needs 3 liters of supplemental oxygen with activity Acute Pulmonary Embolism Likely present on admission -CTA:Segmental and subsegmental pulmonary emboli as above. No evidence of right heart strain. Multilobar extensive bilateral groundglass and coalescing alveolar opacities compatible with multifocal pneumonia, likely viral etiology. Mediastinal and hilar adenopathy, likely reactive. -Continue Therapeutic Lovenox for now Transition to oral anticoagulation upon discharge Abnormal Blood Culture: Likely contamination Repeat Blood cultures no growth to date Checked with Lab on 01/28( No further growth on Blood Cx from 01/22/21) DM II HbA1C: 6.4 Hold Metformin Continue Insulin therapy Monitor BGs Acute kidney injury on CKD III Baseline cr 1.2 Cr:1.68>1.5> 1.07 Monitor renal function lisinopril and metformin held during hospital stay Monitor renal function Hypertension: Continue Hydralazine, Metoprolol, amlodipine Plan to resume lisinopril upon discharge Steroids likely contributing to elevated BP Gout: On allopurinol. Obstructive sleep apnea: Uses BiPAP at bedtime. Uses Oxygen 4 L with CPAP at bedtime Morbid obesity: Needs counseling DVT Px: Lovenox SQ Code Status Full Code Admission and Anticipated Discharge Date Admission Date: January 23, 2021 Subjective Patient is seen and examined at bedside Eager to get discharged No new complaints Had 2 step earlier today Denies dyspnea, chest pain, dizziness, nausea, abd pain Review of Systems Review of Systems: All systems reviewed & are unremarkable except as noted in Subjective Physical Exam Physical Exam: Physical Exam: Vitals signs as noted above General Appearance:Obese, no apparent distress Head: normocephalic, Atraumatic Eyes: normal inspection, EOMI Neck: supple, Trachea midline Respiratory/Chest: Decreased breath sounds, CTA Cardiovascular: S1, S2, No murmur Abdomen/GI:Soft, Non tender, Bowel sounds present Extremities/Musculoskeletal:normal inspection, no edema Neurologic/Psych:AAOX3, grossly no focal neurological deficits Skin: normal color, warm Results & Data Results & Data ([facility]) Vital Signs (Past 12 Hours) Vital Signs Temp Pulse Pulse Pulse Pulse Pulse Pulse 01/28/21 11:48 36.6 C 67 01/28/21 08:34 85 81 79 83 01/28/21 08:07 36.5 C 80 01/28/21 07:15 66 01/28/21 03:49 36.6 C 69 Pulse Pulse Resp Resp Resp Resp Resp 01/28/21 11:48 20 01/28/21 08:34 73 74 20 20 21 19 01/28/21 08:07 20 01/28/21 07:15 01/28/21 03:49 20 Resp Resp BP BP Pulse Ox Pulse Ox Pulse Ox 01/28/21 11:48 135/80 95 01/28/21 08:34 18 17 86 L 88 L 01/28/21 08:07 165/93 H 92 01/28/21 07:15 01/28/21 03:49 137/79 92 Pulse Ox Pulse Ox Pulse Ox Pulse Ox 01/28/21 11:48 01/28/21 08:34 90 84 L 91 91 01/28/21 08:07 01/28/21 07:15 01/28/21 03:49 Laboratory Results Short CBC 01/28/21 Range/Units 05:55 WBC 12.56 H (4.8-10.8) K/uL Hgb 15.7 (14.0-18.0) g/dL Hct 46.6 (42-52) % Plt Count 271 (130-400) K/uL BMP 01/28/21 05:55 Sodium 142 Potassium 4.5 Chloride 108 H Carbon Dioxide 30 BUN 34 H Creatinine 1.07 Glucose 92 Calcium 9.6
--- NOTE | 2021-01-28 15:25 | Discharge Summary ---
Date of Service January 28, 2021 Admission HPI Per Admitting Provider CHIEF COMPLAINT: Shortness of breath. HISTORY OF PRESENT ILLNESS: This is a 70-year-old male with a past medical history significant for type 2 diabetes, diabetic polyneuropathy, sleep apnea, abdominal aortic ectasia, hypertension, morbid obesity, chronic kidney disease stage III, who presents with shortness of breath. The patient was diagnosed with COVID on 01/15/2021. The patient seems to be having symptoms from 01/11/2021, having shortness of breath. Initially he had fever, having some cough, poor appetite, does not smell good, does not taste good. Because of ongoing shortness of breath, EMS was called and for EMS he was saturating only 60% and he was placed on nonrebreather and brought in here. On rebreather, he was 80's%. He was placed on BiPAP. With BiPAP at high settings, he was saturating more than 90. Currently, resting comfortably, but after talking to him, his saturations dropped into 60s again and we had to bump his FiO2 into 100%. Denies any chest pain, denies any nausea, no abdominal pain, no headache, no neck pain, no blurred visions, no earache, no runny nose, no sore throat, no rash. Says he has normal bowel and bladder movements. Admission Exam Per Admitting Provider PHYSICAL EXAMINATION: GENERAL: The patient is obese, not in acute distress. VITAL SIGNS: Temperature 36.4, pulse 72, respiratory rate 24, blood pressure 118/65, oxygen 94% on BiPAP. HEENT: Pupils equal, round and reactive to light. NECK: No neck masses seen. CARDIOVASCULAR: S1 and S2 heard, regular rate and rhythm. No murmur, no gallop. RESPIRATORY SYSTEM: Normal AP diameter. No accessory muscle use. Mild bibasilar crackles. ABDOMEN: Soft, bowel sounds present, nontender, no distention. CENTRAL NERVOUS SYSTEM: Cranial nerves II-XII grossly intact, nonfocal. EXTREMITIES: No edema, no erythema. Principal Diagnosis Acute on chronic respiratory failure with hypoxia COVID pneumonia Acute Pulmonary Embolism Acute kidney injury Discharge Data Allergies Allergy/AdvReac Type Severity Reaction Status Date / Time No Known Allergies Allergy Unverified 01/23/21 00:29 Consultations 01/23/21 00:19 ED Decision to Admit Stat 01/23/21 08:00 Consult [facility] Hand Routine Ordered Studies 01/26/21 08:00 CT angio chest PE protocol Routine Hospital Course (1) Acute hypoxemic respiratory failure due to COVID-19: Patient is a 70 yr male, who presents with shortness of breath and has COVID pneumonia. Acute on chronic respiratory failure with hypoxia COVID pneumonia COVID Screen:Positive on 01/15/21 CXR:Scattered patchy airspace opacities likely representing a viral pneumonia. There are trace bilateral pleural effusions. Procalcitonin: 0.35 CRP:13.2>8.95 Ferritin:768 D-Dimer:[id number] Received Tocilizumab Continue Dexamethasone Day #6 Remdesivir discontinued Isolation precautions--Airborne/Contact Appreciate Critical Care Input Encourage frequent Proning Lasix as needed Albuterol PRN Off High flow Oxygen DVT prophylaxis on Lovenox SQ Transition to Eliquis upon discharge 2 Step: Needs 3 liters of supplemental oxygen with activity Acute Pulmonary Embolism Likely present on admission -CTA:Segmental and subsegmental pulmonary emboli as above. No evidence of right heart strain. Multilobar extensive bilateral groundglass and coalescing alveolar opacities compatible with multifocal pneumonia, likely viral etiology. Mediastinal and hilar adenopathy, likely reactive. -Continue Therapeutic Lovenox for now Transition to oral anticoagulation upon discharge Abnormal Blood Culture: Likely contamination Repeat Blood cultures no growth to date Checked with Lab on 01/28( No further growth on Blood Cx from 01/22/21) DM II HbA1C: 6.4 Hold Metformin Continue Insulin therapy Monitor BGs Acute kidney injury on CKD III Baseline cr 1.2 Cr:1.68>1.5> 1.07 Monitor renal function lisinopril and metformin held during hospital stay Monitor renal function Hypertension: Continue Hydralazine, Metoprolol, amlodipine Plan to resume lisinopril upon discharge Steroids likely contributing to elevated BP Gout: On allopurinol. Obstructive sleep apnea: Uses BiPAP at bedtime. Uses Oxygen 4 L with CPAP at bedtime Morbid obesity: Needs counseling DVT Px: Lovenox SQ Code Status Full Code Total Time Total Time Spent Total Time Spent (In Minutes): 44 minutes Discharge Plan Discharge Items Patient Disposition: Home - Self-Care Reason For Visit: SHORTNESS OF BREATH Discharge Diagnosis: Acute on chronic respiratory failure with hypoxia COVID pneumonia Acute Pulmonary Embolism Acute kidney injury Activity: Per Instructions section Exercise/Sports: Wait until after follow-up appointment Non-emergency contact: Primary Care Provider Call non-emergency contact if: you have any medication questions, your symptoms worsen, your pain is concerning for you and you have a fever Follow-up/Referrals: Kenny Whitfield MD [Outside Practitioners] - (Date & Time 02/04/2021 11:20 AM Provider Kun Garcia [facility] ) Diet: Carb Consistent or DM2 and Heart Healthy Addtl Attending Provider Instructions: Follow-up with your primary care physician on 02/04/2021 11:20 AM Start taking Apixaban tonight. Take Apixaban (Eliquis) 10 mg twice a day for 7 days and then switch to 5 mg twice daily. Duration of apixaban treatment to be determined by your family physician. Use oxygen 3 L via nasal cannula with activity as advised. Do not take group of medications belonging to NSAIDs group -can cause worsening of your kidney function and reduce your risk for bleeding. List Of these medications includes but not limited to: Aspirin Diclofenac Ibuprofen, Motrin, Advil Toradol,ketorolac Naproxen, Aleve, Naprosyn You can take Tylenol as needed for pain or fever When buying [id number] pain medications please consult with pharmacy if you are not sure regarding ingredients, as a lot of the pain medications have combination of NSAIDs and Tylenol. Seek immediate medical attention if your symptoms reoccur or worsen Please take all medications as instructed on discharge list below. Please call if you have any questions or problems. You can reach a [facility] hospitalist on duty at [facility] 24 hours a day by calling [phone] Home Isolation COVID-19 Instructions The following information about Home Isolation is from the CDC Website: https://www.cdc.gov/coronavirus/2019-ncov/hcp/jntilidi-cgkmjzr-qkfuok.html Stay home except to get medical care People who are mildly ill with COVID-19 are able to isolate at home during their illness. You should restrict activities outside your home, except for getting medical care. Do not go to work, school, or public areas. Avoid using public transportation, ride-sharing, or taxis. Separate yourself from other people and animals in your home People: As much as possible, you should stay in a specific room and away from other people in your home. Also, you should use a separate bathroom, if available. Animals: You should restrict contact with pets and other animals while you are sick with COVID-19, just like you would around other people. Although there have not been reports of pets or other animals becoming sick with COVID-19, it is still recommended that people sick with COVID-19 limit contact with animals until more information is known about the virus. When possible, have another member of your household care for your animals while you are sick. If you are sick with COVID-19, avoid contact with your pet, including petting, snuggling, being kissed or licked, and sharing food. If you must care for your pet or be around animals while you are sick, wash your hands before and after you interact with pets and wear a face mask. Call ahead before visiting your doctor If you have a medical appointment, call the healthcare provider and tell them that you have or may have COVID-19. This will help the healthcare providers office take steps to keep other people from getting infected or exposed. Wear a face mask You should wear a face mask when you are around other people (e.g., sharing a room or vehicle) or pets and before you enter a healthcare providers office. If you are not able to wear a face mask (for example, because it causes trouble breathing), then people who live with you should not stay in the same room with you, or they should wear a face mask if they enter your room. Cover your coughs and sneezes Cover your mouth and nose with a tissue when you cough or sneeze. Throw used tissues in a lined trash can. Immediately wash your hands with soap and water for at least 20 seconds or, if soap and water are not available, clean your hands with an alcohol-based hand transcript evaluator that contains at least 60% alcohol. Clean your hands often Wash your hands often with soap and water for at least 20 seconds, especially after blowing your nose, coughing, or sneezing; going to the bathroom; and before eating or preparing food. If soap and water are not readily available, use an alcohol-based hand transcript evaluator with at least 60% alcohol, covering all surfaces of your hands and rubbing them together until they feel dry. Soap and water are the best option if hands are visibly dirty. Avoid touching your eyes, nose, and mouth with unwashed hands. Avoid sharing personal household items You should not share dishes, drinking glasses, cups, eating utensils, towels, or bedding with other people or pets in your home. After using these items, they should be washed thoroughly with soap and water. Clean all high-touch surfaces everyday High touch surfaces include counters, tabletops, doorknobs, bathroom fixtures, toilets, phones, keyboards, tablets, and bedside tables. Also, clean any surfaces that may have blood, stool, or body fluids on them. Use a household cleaning spray or wipe, according to the label instructions. Labels contain instructions for safe and effective use of the cleaning product including precautions you should take when applying the product, such as wearing gloves and making sure you have good ventilation during use of the product. Monitor your symptoms Seek prompt medical attention if your illness is worsening (e.g., difficulty breathing).Beforeseeking care, call your healthcare provider and tell them that you have, or are being evaluated for, COVID-19. Put on a face mask before you enter the facility. These steps will help the healthcare providers office to keep other people in the office or waiting room from getting infected or exposed. Ask your healthcare provider to call the local or state health department. Persons who are placed under active monitoring or facilitated self- monitoring should follow instructions provided by their local health department or occupational health professionals, as appropriate. When working with your local health department check their available hours. If you have a medical emergency and need to call 911, notify the dispatch personnel that you have, or are being evaluated for COVID-19. If possible, put on a face mask before emergency medical services arrive. Discontinuing home isolation Patients with confirmed COVID-19 should remain under home isolation precautions until the risk of secondary transmission to others is thought to be low. The decision to discontinue home isolation precautions should be made on a obqg-ie-gjji basis, in consultation with healthcare providers and state and local health departments. Coronavirus disease 2019 (COVID-19) is a virus that causes a respiratory illness. It is caused by a coronavirus called 2019 novel coronavirus (2019- nCoV). There are many types of coronavirus. Coronaviruses are a very common cause of bronchitis. They may sometimes cause lung infection(pneumonia). Symptoms can range from mild to severe respiratory illness. These viruses are also foundin some animals. COVID-19 was first found in people in [facility], in late 2019. In 2020, several cases of COVID-19 have been confirmed in the [place] Public health officials are working to find the source. How the virus spreads is not yet fully known. It may be spread through droplets of fluid that a person coughs or sneezes into the air. It may be spread if you touch a surface with virus on it, such as a handle or object, and then touch your mouth. What are the symptoms of COVID-19? Some people have no symptoms or mild symptoms. Symptoms may appear 2 to 14 days after contact with the virus. Symptoms can include: Fever Coughing Trouble breathing What are possible complications from COVID-19? In many cases, this virus can cause infection (pneumonia) in both lungs. In some cases, this can cause . How is COVID-19 diagnosed? Your healthcare provider will ask about your symptoms. He or she will also ask about your recent travel and contact with sick people. Testing for the virus is only done through the CDC. If yourhealthcare provider thinks you may have COVID- 19, he or she will work with your local health department and the CDC on testing. Follow all instructions from your healthcare provider. COVID-19 is diagnosed by: Nasal and throat swab. A cotton-tipped swab is wiped inside your nose or throat. This is done to check for viruses in your nasal mucus. Sputum culture. A small sample of mucus coughed from your lungs (sputum) is collected if you have a cough. It is checked for the virus. How is COVID-19 treated? There is currently no medicine to treat the virus. Treatment is done to help your body while it fights the virus. This is known as supportive care. Supportive care may include: Pain medicine. These include acetaminophen and ibuprofen. They are used to help ease pain and reduce fever. Bed rest. This helps your body fight the illness. For severe illness, you may need to stay in the hospital. Care during severe illness may include: IV (intravenous) fluids.These are given through a vein to help keep your body hydrated. Oxygen. Supplemental oxygen or ventilation with a breathing machine (ventilator) may be given. This is done to keep enough oxygen in your body. Are you at risk for COVID-19? If youve been to a place where people have been sick with this virus, you are at risk for infection. You are at risk if you: Recently traveled to an affected area Had contact with a sick person who recently traveled to this area Had contact with a person who was diagnosed with COVID-19 How can COVID-19 be prevented? There is no vaccine yet. The best prevention is to not have contact with the virus. The CDC advises that people should not travel to areas where there are COVID-19 outbreaks right now for any reason that is not urgent. To help prevent spreading the infection, wash your hands often, or use an alcohol-basedhand transcript evaluator. If you are in an area with COVID-19: Wash your hands often. Or use an alcohol-based hand transcript evaluator often. Only touch your eyes, nose, or mouth with clean hands. Dont have contact with people who are sick. Follow local instructions about being in public. For example, you may be told to not use public transport for a period of time. Stay away from markets that have live or animals. Wash your hands after touching any animals. Don't touch animals that may be sick. Dont share eating or drinking tools with sick people. Dont kiss someone who is sick. Clean surfaces often with disinfectant. If you were in an area with COVID-19 in the last 14 days: Call your healthcare provider. He or she can talk with local health staff to see what action may be needed. Follow all instructions from your provider. Take your temperature every morning and evening for at least 14 days. This is to check for fever. Keep a record of the readings. Keep watch for symptoms of the virus. Tell your provider right away if you have symptoms. If you were in an area with COVID-19 and have a fever or other symptoms: Dont panic. Keep in mind that other illnesses can cause similar symptoms. Stay away from work, school, and public places. Limit physical contact with family members. Don't kiss anyone or share eating or drinking utensils. Clean surfaces you touch with disinfectant. This is to help prevent the virus from spreading. Call your healthcare provider. Explain that you have been exposed to COVID-19 and have symptoms. Do this before going to any hospital. Wait for instructions. Keep in mind that healthcare staff may wear protective equipment such as masks, gowns, gloves, and eye protection. You may be put in a separate room. This is to prevent the possible virus from spreading. Tell the healthcare staff about recent travel. This includes local travel on public transport. Staff may need to find other people you have been in contact with. Follow all instructions the healthcare staff give you. If you have been diagnosed with COVID-19 Follow all instructions from your healthcare provider. Dont leave your home, except to get medical care. Call your healthcare providers office before going. They can prepare and give you instructions. This will help prevent the virus from spreading. Dont go to work, school, or public areas. Dont use public transport or taxis. Stay away from other people in your home. Have them wear face masks around you. Dont share household items or food. Wear a face mask if you can. This includes at home or in a medical facility. Cover your face with a tissue when you cough or sneeze. Throw the tissue away. Wash your hands. Wash your hands often. Caregivers should: Follow all instructions from healthcare staff. Wear a face mask and protective clothing as advised. Wash hands often. Keep track of the sick persons symptoms. Clean surfaces, fabrics, and laundry thoroughly. Keep other people away from the sick person. When to call your healthcare provider Call your healthcare provider: If youve recently traveled and have symptoms If you have been diagnosed with COVID-19 and your symptoms are worse To learn more To find out more about COVID-19, visit the CDC website at www.cdc.gov/coronavirus/2019-ncov/index.html. [employer]. [address] [place] [address], [place] [address]. All rights reserved. This information is not intended as a substitute for professional medical care. Always follow your healthcare professional's instructions. This information has been adapted from [employer] Pending Studies at Discharge: Yes Studies:: Blood Cultures Stand-Alone Forms: My [employer], Smoking Cessation Medications and DC Order Prescriptions: New Eliquis 5 mg (74 tabs) tablets,dose pack 5 mg PO UD Qty: 74 RF: 2 Continued allopurinol 100 mg Tablet 100 mg PO BID RF: 0 hydralazine 25 mg Tablet 25 mg PO BID RF: 0 metformin 1,000 mg Tablet 1,000 mg PO BID RF: 0 cyanocobalamin (vitamin B-12) 2,000 mcg Tablet 2,000 mcg PO DAILY RF: 0 metoprolol succinate 200 mg Tablet Extended Release 24 Hr 200 mg PO DAILY RF: 0 amlodipine 10 mg Tablet 10 mg PO DAILY RF: 0 lisinopril 40 mg Tablet 40 mg PO DAILY RF: 0 furosemide 20 mg Tablet 20 mg PO DAILY RF: 0 ondansetron HCl 4 mg tablet 4 mg PO TID PRN (Reason: Nausea And Vomiting) RF: 0 Discharge Orders: Discharge Order (Routine); Ordered 01/28/21 Ordered By: Robert Moran/Other Patient Handouts: A1C, Managing Type 2 Diabetes Admission Data Admit Date/Time: 01/23/21 03:45 Attending Provider: Robert Price Admit Provider: Jay Lnych Primary Care Provider: PCP,NO Other Providers: Jay Lynch ; Nathan Castaneda Other Interventions: Discharge Summary Assessment (RN) Last Done: 01/28/21 15:30
== END 2021-01-28 18:50 | disposition home or self-care (01) | DRG 177 ==
LOC: ED 22:14 → 1E 01-23 03:45 → SUATTDRO 01-23 03:45 → 1E 01-23 04:30 → 2E 01-25 10:27
DX: N17.9 Acute kidney failure, unspecified; M10.9 Gout, unspecified; Z68.41 Body mass index [BMI] 40.0-44.9, adult; E11.22 Type 2 diabetes mellitus with diabetic chronic kidney disease; I12.9 Hypertensive chronic kidney disease with stage 1 through stage 4 chronic kidney disease, or unspecified chronic kidney disease; J96.01 Acute respiratory failure with hypoxia; N18.30 Chronic kidney disease, stage 3 unspecified; E66.01 Morbid (severe) obesity due to excess calories; G47.33 Obstructive sleep apnea (adult) (pediatric); J96.21 Acute and chronic respiratory failure with hypoxia; J12.82 Pneumonia due to coronavirus disease 2019; Z79.84 Long term (current) use of oral hypoglycemic drugs; U07.1 COVID-19; Z82.49 Family history of ischemic heart disease and other diseases of the circulatory system